=== PATIENT | female | born 1945 | race Caucasian/White ===

== ENCOUNTER 2017-08-11 18:20 | Emergency (ER) | payer OTHER, MEDICARE ==
[2017-08-11] MEDS ORDERED: Sodium Chloride 0.9% 10 ML Syringe FLUSH PRN (18:31)
[2017-08-11] MEDS ORDERED: HYDROmorphone 0.5 MG/0.5 ML Syringe IVPUSH ONE (18:32)
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
--- NOTE | 2017-08-11 19:14 | CT ---
CT chest Technique: Multiple axial sections through the chest were obtained. Intravenous contrast not utilized. Comparison: No previous chest imaging. Findings: Calcified right sided breast prosthesis is noted. AICD is noted causing some artifact. Mediastinum and hilar regions show no adenopathy. Coronary artery calcification is noted. No pericardial thickening is seen. Small portion of the visualized upper abdominal structures have an unremarkable noncontrast CT appearance. Emphysematous changes are seen within the lung with several scattered lungs cysts or bulla. There are no acute parenchymal densities seen within the chest. No pleural effusions or pneumothorax is seen. Bone window settings were reviewed which shows endplate concavities within several upper thoracic vertebral bodies. Age of these are indeterminate and MRI would be needed to further age these findings. Minimal deformity seen within the mid to upper sternum suspicious for nondisplaced fracture. Fracture also identified within the right fourth anterolateral rib. No additional rib fracture is seen. Impression: 1. Fracture within the right fourth anterolateral rib. 2. Nondisplaced fracture felt to be present within the mid to upper sternum. 3. Several endplate concavities within the upper thoracic spine, age of these are indeterminate and MRI would be helpful to further age these findings. 4. Emphysematous change and other incidental findings. Diagnostic code #3
[2017-08-11] MEDS ORDERED: HYDROmorphone 1 MG/ML Syringe IVPUSH ONE (20:16)
[2017-08-11] MEDS ORDERED: Diphtheria,Pertussis(Acell),Tetanus Vaccine 0.5 ML SDV IM ONE (20:45)
== END 2017-08-11 21:38 | disposition home or self-care (01) ==
LOC: JD.ED 18:20
DX: S22.31XA Fracture of one rib, right side, initial encounter for closed fracture (principal); S22.20XA Unspecified fracture of sternum, initial encounter for closed fracture; Z88.2 Allergy status to sulfonamides; Z88.8 Allergy status to other drugs, medicaments and biological substances; Z79.899 Other long term (current) drug therapy; V43.92XA Unspecified car occupant injured in collision with other type car in traffic accident, initial encounter
CPT/HCPCS: 36415; 71250; 80053; 81003; 83690; 84484; 85025; 90471; 90715; 93005; 96374; 96376; 99285; J1170; J7050; 93010; 99284

== ENCOUNTER 2017-08-18 19:43 | Emergency (ER) | payer OTHER, MEDICARE ==
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
--- NOTE | 2017-08-23 16:02 | CR ---
Chest: Two views of the chest were obtained. Comparison: No prior study. Bilateral breast prosthesis which appear calcified are incidentally noted. Heart size is normal. Mild tortuosity of the thoracic aorta is seen. AICD is present. Previous sternal fracture not appreciated on plain film exam as was noted on recent chest CT. Impression: 1. Incidental findings. Nothing acute is seen. Diagnostic code #2
--- NOTE | 2017-08-23 16:02 | CR ---
Left knee: Four views of the left knee were obtained. Comparison: No previous study. Medial and lateral joint spaces are well-maintained in height. No joint effusion is seen. No fracture or other bony abnormality is seen. Impression: 1. No abnormality is appreciated on the left knee exam. Diagnostic code #1
== END 2017-08-18 22:50 | disposition home or self-care (01) ==
LOC: JD.ED 19:43
DX: S80.02XA Contusion of left knee, initial encounter (principal); J45.909 Unspecified asthma, uncomplicated; Z88.5 Allergy status to narcotic agent; Z88.2 Allergy status to sulfonamides; Z79.899 Other long term (current) drug therapy; Z88.8 Allergy status to other drugs, medicaments and biological substances; Z91.09 Other allergy status, other than to drugs and biological substances; V89.2XXA Person injured in unspecified motor-vehicle accident, traffic, initial encounter
CPT/HCPCS: 36415; 71020; 71020-26; 73564-26-LT; 73564-LT; 80053; 83880; 85025; 99283; 99284

== ENCOUNTER 2018-12-14 08:01 | Inpatient (IN) | payer MEDICARE, OTHER ==
[2018-12-14] MEDS ORDERED: Sodium Chloride 0.9% 1,000 ML IV STA (08:36)
[2018-12-14] MEDS ORDERED: Ondansetron 4 MG/2 ML SDV IVPUSH ONE (08:36)
[2018-12-14] MEDS ORDERED: Sodium Chloride 0.9% 10 ML Syringe FLUSH PRN ×2 (08:36→09:55)
[2018-12-14] MEDS ORDERED: Iopamidol 755 Mg/ML 200 ML Bottle IV ONE ×2 (09:55→10:06)
[2018-12-14] MEDS ORDERED: Diatrizoate Meglumine/Diatrizoate Sodium 37% 120 ML Bottle PO ONE (09:55)
[2018-12-14] MEDS ORDERED: Sodium Chloride 0.9% 100 ML IV SCH (10:00)
--- NOTE | 2018-12-14 10:38 | CT ---
CT abdomen and pelvis Technique: Multiple axial sections were obtained from above the dome of the diaphragm inferiorly through the pubic symphysis. Oral contrast utilized which remains within the stomach. Intravenous contrast also utilized. Comparison: No prior CT abdomen or pelvis exam. Findings: Calcified right breast prosthesis is incidentally noted. Small emphysematous blebs are seen within the right lung base. Smaller emphysematous blebs are seen within the left lung base. Liver shows no focal abnormality. Gallbladder contains no calcified gallstones. Spleen appears within normal limits. Adrenal glands show no nodule. Kidneys show symmetric contrast enhancement without hydronephrosis or mass. Pancreas shows no discrete abnormality. Aorta shows mild atheromatous change without aneurysm. Dilated small bowel loops are seen. Small bowel contains fluid. Transition point is within the pelvis in the area of surgical clips presumably representing mild small bowel obstruction due to adhesions. There is a small amount of ascites being seen. Delayed images show no contrast excretion into the distal ureters which is suspicious for dehydration. Previous hysterectomy is noted. Bone window settings were reviewed which show fairly severe degenerative change within the lumbar spine. Spondylolisthesis noted at L4-L5 measuring 7.7 mm. Impression: 1. Mid to distal small bowel obstruction with transition point being within the pelvis. This occurs in the area of surgical clips and presumably represents obstruction from adhesion. 2. Small amount of ascites. 3. Emphysematous bullae within both lung bases. Other incidental findings. Diagnostic code #3
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
[2018-12-14] MEDS ORDERED: Ondansetron 4 MG/2 ML SDV IV PRN (14:58)
[2018-12-14] MEDS ORDERED: Sodium Chloride 0.9% 500 ML IV SCH (15:00)
[2018-12-14] MEDS ORDERED: Dextrose 5%-0.9% NaCl 1,000 ML IV SCH (15:00)
[2018-12-14] MEDS ORDERED: Albuterol 6.7 GM Inhaler INH PRN (15:08)
[2018-12-14] MEDS ORDERED: CYCLOSPORINE EYE EYEBOTH PRN (15:08)
[2018-12-14] MEDS ORDERED: Carboxymethylcellulose Sodium 1% Ophth Gel 15 ML Bottle EYEBOTH PRN (15:08)
[2018-12-14] MEDS ORDERED: FLURBIPROFEN SODIUM OP SCH (15:15)
--- NOTE | 2018-12-14 16:12 | PCM.HP ---
H&P History of Present Illness - General Date of Service: 12/14/18 Admit Problem/Dx: Admission Diagnosis/Problem Admission Diagnosis/Problem Small bowel obstruction Source of Information: Patient - History of Present Illness Initial Comments - Free Text/Narative: This 73-year-old female with history of bowel obstruction 2 months ago presents to the ER this morning after developing abdominal pain last night. She states that her stomach hurt last night with cramping and pain. She then had 3 bowel movements which did seem to help her pain. At 3:00 in the morning she started vomiting green bile and the pain worsened again. At 6:30 she did have another bowel movement and urinated. Pain did not improve and she continued to vomit and by 8:00 she came to the hospital. She states that her stomach now feels full. She denies any hematemesis, coffee-ground emesis, melena, or blood in her stool. Patient had a similar episode 2 months ago and she was diagnosed with bowel obstruction and hospitalized for 3 or 4 days. She does state that she likely had a similar, smaller episode 2 weeks earlier. Patient states that in 1998 she had a hysterectomy with oophorectomy and appendectomy. At that time presumed diagnosis was possible ovarian cancer and she underwent 3 months of chemotherapy. 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 Patient underwent diagnostic surgery, chemotherapy, and radiation. In 2014 she underwent surgery again for complications to her pseudomyxoma peritonei. She has not had any bowel resection other than the appendectomy. In the emergency room patient had an NG tube placed. She states she did vomit and they did get some residual. She was given 1 L normal saline and admitted. CT of the abdomen was done in the emergency room. Impression: 1. Mid to distal small bowel obstruction with transition point being within the pelvis. This occurs in the area of surgical clips and presumably represents obstruction from adhesion. 2. Small amount of ascites. 3. Emphysematous bullae within both lung bases. Other incidental findings. Abdomen Pain Score (Numeric/FACES): 6 - Related Data Allergies/Adverse Reactions: Allergies Allergy/AdvReac Type Severity Reaction Status Date / Time cobalt Allergy Hives Verified 12/14/18 08:27 homatropine Allergy Hives Verified 12/14/18 08:27 [From Hycodan (with homatropin)] hydrocodone Allergy Hives Verified 12/14/18 08:27 [From Hycodan (with homatropin)] nickel Allergy Hives Verified 12/14/18 08:27 perfume Allergy Hives Verified 12/14/18 08:27 Sulfa (Sulfonamide Allergy Hives Verified 12/14/18 08:27 Antibiotics) Home Medications: Home Meds Acetaminophen [Tylenol Extra Strength] 1,000 mg PO QID 08/11/17 [History] Albuterol Sulfate [Proair Respiclick] 2 puff INH Q4H PRN 08/11/17 [History] Ascorbate Calcium [Vitamin C] 500 mg PO DAILY 08/11/17 [History] Budesonide/Formoterol Fumarate [Symbicort 160-4.5 Mcg Inhaler] 2 puff INH BID [History] Ca/D3/Mag Ox/Zinc/Informatics Analyst/Uri/Bor [Calcium 600-D3 Plus Caplet] 600 - 1,500 mg PO DAILY 08/11/17 [History] Carboxymethylcellulose Sodium [Refresh Tears 0.5%] 1 drop EYEBOTH ASDIRECTED PRN 08/11/17 [History] Carvedilol [Coreg] 12.5 mg PO BID 08/11/17 [History] Cephalexin [Keflex] 500 mg PO BID 08/11/17 [History] Cholecalciferol (Vitamin D3) [Vitamin D3] 2,000 unit PO ASDIRECTED 08/11/17 [ History] Docusate Sodium [Colace] 300 mg PO BEDTIME PRN 08/11/17 [History] Hydroxychloroquine [Plaquenil] 200 mg PO BID 08/11/17 [History] Ibuprofen [Advil] 200 mg PO BID 08/11/17 [History] Ipratropium/Albuterol Sulfate [Iprat-Albut 0.5-3(2.5) mg/3 ml] 3 ml IH BID 08/11 [History] Lisinopril 20 mg PO DAILY 08/11/17 [History] Multivitamin [Multivitamins] 1 each PO DAILY 08/11/17 [History] Nystatin [IJD: Nystatin Cream] 1 applic TOP BID 08/11/17 [History] OLANZapine [ZyPREXA] 2.5 mg PO DAILY 08/11/17 [History] Ofloxacin [Floxin 0.3% Otic Soln] 1 drop EYEBOTH ASDIRECTED PRN 08/11/17 [ History] Omeprazole 40 mg PO DAILY 08/11/17 [History] traMADol [Ultram] 50 mg PO Q6H PRN 08/11/17 [History] Flurbiprofen Sodium 2.5 ml OP ASDIRECTED 12/14/18 [History] Furosemide [Lasix] 20 mg PO DAILY PRN 12/14/18 [History] cycloSPORINE [Restasis] 1 each OP ASDIRECTED PRN 12/14/18 [History] prednisoLONE acetate [Pred Forte 1% Ophth Susp] 0 drop EYEBOTH ASDIRECTED [History] Past Medical History HEENT History: Reports: Allergic Rhinitis, Cataract, Impaired Vision, Sinusitis Other HEENT History: utilizes reading eyeglasses. Cardiovascular History: Reports: Heart Failure, Hypertension, Pacemaker, Other ( See Below) Other Cardiovascular History: L) bundle branch block Respiratory History: Reports: Asthma, Bronchitis, Recurrent, Pneumonia, Recurrent, Sleep Apnea Gastrointestinal History: Reports: Bowel Obstruction, Other (See Below) Other Gastrointestinal History: cancer in stomach. Pseudomyxoma. 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 Hematologic History: Reports: Anemia, Blood Transfusion(s) Oncologic (Cancer) History: Reports: Breast, Ovarian, Other (See Below) Other Oncologic History: pseudomyxoma peritonei Dermatologic History: Reports: Other (See Below) Other Dermatologic History: allergies to fragrances/perfumes. Dry skin. - Infectious Disease History Infectious Disease History: Reports: Chicken Pox, Measles, Mumps, Shingles - Past Surgical History Head Surgeries/Procedures: Reports: None GI Surgical History: Reports: Appendectomy, Colonoscopy Female Surgical History: Reports: Breast Reconstruction, Hysterectomy, Mastectomy Social & Family History - Family History Cardiac: Reports: [place], Pacemaker Musculoskeletal: Reports: Arthritis, RA Oncologic: Reports: Breast - Tobacco Use Smoking Status *Q: Former Smoker Used Tobacco, but Quit: Yes Month/Year Tobacco Last Used: 1979 Second Hand Smoke Exposure: Yes - Caffeine Use Caffeine Use: Reports: Soda, Tea - Recreational Drug Use Recreational Drug Use: No H&P Review of Systems - Review of Systems: Review Of Systems: See Below General: Reports: Fatigue, Weight Loss (25 pounds in last year) Pulmonary: Reports: No Symptoms. Denies: Shortness of Breath, Wheezing Cardiovascular: Reports: No Symptoms. Denies: Chest Pain, Palpitations Gastrointestinal: Reports: Decreased Appetite, Vomiting. Denies: Black Stool, Bloody Stool, Diarrhea Genitourinary: Reports: No Symptoms. Denies: Dysuria, Frequency Musculoskeletal: Reports: No Symptoms Skin: Reports: No Symptoms Psychiatric: Reports: No Symptoms Neurological: Reports: No Symptoms Hematologic/Lymphatic: Reports: No Symptoms Immunologic: Reports: No Symptoms Exam - Exam Exam: See Below - Vital Signs Vital Signs: Last Vital Signs Temp 98.2 F 12/14/18 13:06 Pulse 122 H 12/14/18 13:06 Resp 16 12/14/18 13:06 BP 136/63 12/14/18 13:06 Pulse Ox 92 L 12/14/18 13:06 Weight: 118 lb 8 oz - Exam Quality Assessment: Other (NG tube to wall suction) General: Alert, Oriented HEENT: Conjunctiva Clear, Other. No: Mucosa Moist & [place] (Mildly dehydrated mucosa) Neck: Supple, Trachea Midline Lungs: Clear to Auscultation, Normal Respiratory Effort Cardiovascular: Regular Rhythm, Tachycardia GI/Abdominal Exam: Soft, No Organomegaly, No Distention, Tender (Minimal epigastric and left upper quadrant tenderness). No: Distended, Guarding, Rigid , Rebound Peripheral Pulses: 1+: Dorsalis Pedis (L), Dorsalis Pedis (R) Skin: Warm, Dry, Intact Neuro Extensive - Mental Status: Alert, Oriented x3, Normal Mood/Affect, Normal Cognition, Memory Intact Psychiatric: Alert, Normal Affect, Normal Mood - Patient Data Lab Results Last 24 hrs: Laboratory Results - last 24 hr 12/14/18 12/14/18 Range/Units 08:45 08:45 WBC 12.09 H (3.98-10.04) K/mm3 RBC 4.22 (3.98-5.22) M/mm3 Hgb 12.0 (11.2-15.7) gm/L Hct 39.3 (34.1-44.9) % MCV 93.1 (79.4-94.8) fl MCH 28.4 (25.6-32.2) pg MCHC 30.5 L (32.2-35.5) g/dl RDW Std Deviation 46.7 H (36.4-46.3) fL Plt Count 225 (182-369) K/mm3 MPV 9.8 (9.4-12.3) fl Neut % (Auto) 87.5 H (34.0-71.1) % Lymph % (Auto) 7.3 L (19.3-51.7) % [place] % (Auto) 4.9 (4.7-12.5) % Eos % (Auto) 0 L (0.7-5.8) Baso % (Auto) 0.1 (0.1-1.2) % Neut # (Auto) 10.58 H (1.56-6.13) K/mm3 Lymph # (Auto) 0.88 L (1.18-3.74) K/mm3 [place] # (Auto) 0.59 H (0.24-0.36) K/mm3 Eos # (Auto) 0.00 L (0.04-0.36) K/mm3 Baso # (Auto) 0.01 (0.01-0.08) K/mm3 Manual Slide Review Abnormal smear Sodium 133 L (136-145) mEq/L Potassium 5.4 H (3.5-5.1) mEq/L Chloride 98 (98-107) mEq/L Carbon Dioxide 23 (21-32) mEq/L Anion Gap 17.4 H (5-15) BUN 28 H (7-18) mg/dL Creatinine 1.3 H (0.55-1.02) mg/dL Est Cr Clr Drug Dosing 34.27 mL/min Estimated GFR (MDRD) 40 (>60) mL/min BUN/Creatinine Ratio 21.5 H (14-18) Glucose 117 H (83-115) mg/dL Calcium 10.3 H (8.5-10.1) mg/dL Total Bilirubin 0.3 (0.2-1.0) mg/dL AST 36 (15-37) U/L ALT 19 (14-59) U/L Alkaline Phosphatase 100 (46-116) U/L Total Protein 9.8 H (6.4-8.2) g/dl Albumin 3.7 (3.4-5.0) g/dl Globulin 6.1 gm/dL Albumin/Globulin Ratio 0.6 L (1-2) Lipase 379 (73-393) U/L Result Diagrams: 12/14/18 08:45 12/14/18 08:45 - Problem List (1) Pseudomyxoma peritonei SNOMED Code(s): 902085848 ICD Code: C78.6 - SECONDARY MALIGNANT NEOPLASM OF RETROPERITON AND PERITONEUM Status: Acute Current Visit: Yes (2) CHF (congestive heart failure) SNOMED Code(s): 71279710 ICD Code: I50.9 - HEART FAILURE, UNSPECIFIED Status: Acute Current Visit : Yes (3) HTN (hypertension) SNOMED Code(s): 93155030 ICD Code: I10 - ESSENTIAL (PRIMARY) HYPERTENSION Status: Acute Current Visit: Yes (4) Asthma SNOMED Code(s): 112868647 ICD Code: J45.909 - UNSPECIFIED ASTHMA, UNCOMPLICATED Status: Acute Current Visit: Yes (5) Sjogrens syndrome SNOMED Code(s): 98531145 ICD Code: M35.00 - SICCA SYNDROME, UNSPECIFIED Status: Acute Current Visit: Yes (6) Rheumatoid arthritis SNOMED Code(s): 00898351 ICD Code: M06.9 - RHEUMATOID ARTHRITIS, UNSPECIFIED Status: Acute Current Visit: Yes (7) Small bowel obstruction SNOMED Code(s): 506051688 ICD Code: K56.609 - UNSP INTESTNL OBST, UNSP TO PARTIAL VERSUS COMPLETE OBST Status: Acute Current Visit: Yes Problem List Initiated/Reviewed/Updated: Yes Orders Last 24hrs: Active Orders 24 hr Category Date Time Status Patient Status [ADT] Routine ADT 12/14/18 12:14 Active Bedrest Bedside Commode [RC] ASDIRECTED Care 12/14/18 14:58 Active Cardiac Monitoring [RC] CONTINUOUS Care 12/14/18 14:59 Active Height and Weight [RC] DAILY Care 12/14/18 14:58 Active Intake and Output [RC] QSHIFT Care 12/14/18 14:59 Active NG [Gastrointestinal Tube Mgmt] [RC] ASDIRECTED Care 12/14/18 15:16 Active Oxygen Therapy [RC] PRN Care 12/14/18 14:58 Active Peripheral IV Care [RC] . DIRECTED Care 12/14/18 08:36 Active Urinary Catheter Assessment [RC] ASDIRECTED Care 12/14/18 14:58 Active Urinary Catheter Assessment [RC] ASDIRECTED Care 12/14/18 15:19 Active Urinary Catheter Insertion [Insert Urinary Catheter] [ Care 12/14/18 15:30 Ordered OM.PC] Q24H VTE/DVT Education [RC] PER UNIT ROUTINE Care 12/14/18 14:58 Active Vital Signs [RC] Q4H Care 12/14/18 14:58 Active Nothing per Oral Now Diet [DIET] Diet 12/14/18 Dinner Active Abdomen 1V Flat [CR] AM Exams 12/15/18 05:11 Ordered CBC WITH AUTO DIFF [HEME] AM Lab 12/15/18 05:11 Ordered COMPREHENSIVE METABOLIC PN,CMP [CHEM] AM Lab 12/15/18 05:11 Ordered LACTIC ACID [CHEM] AM Lab 12/15/18 05:11 Ordered MAGNESIUM [CHEM] AM Lab 12/15/18 05:11 Ordered PHOSPHORUS [CHEM] AM Lab 12/15/18 05:11 Ordered UA W/MICROSCOPIC [URIN] Stat Lab 12/14/18 08:36 Ordered Albuterol [Proventil HFA] Med 12/14/18 15:08 Active 0 gm INH Q4H PRN Budesonide/Formoterol Fumarate Med 12/14/18 21:00 Pending 2 puff INH BID Carboxymethylcellulose Sodium [Refresh Liquigel 1%] Med 12/14/18 15:08 Active 0 ml EYEBOTH ASDIRECTED PRN Dextrose 5%-0.9% NaCl [Dextrose 5%-Normal Saline] 1,000 Med 12/14/18 15:00 Active ml IV ASDIRECTED Enoxaparin [Lovenox] Med 12/14/18 15:00 Active 40 mg SUBCUT DAILY Flurbiprofen Sodium [Flurbiprofen Sodium] Med 12/14/18 15:15 Pending 2.5 ml OP ASDIRECTED Metoprolol Tartrate [Lopressor] Med 12/14/18 15:15 Active 2.5 mg IVPUSH Q6H Nystatin Med 12/14/18 21:00 Pending 1 applic TOP BID Ondansetron [Zofran] Med 12/14/18 14:58 Active 4 mg IV Q4H PRN Pantoprazole [ProTONIX IV] Med 12/15/18 09:00 Active 40 mg IVPUSH DAILY Patient's Own Medication [Ptom] Med 12/14/18 15:08 Active 1 each EYEBOTH ASDIRECTED PRN Sodium Chloride 0.9% @ 150 MLS/HR (1000ml Bag) Med 12/14/18 16:15 Ordered Sodium Chloride 0.9% [Normal Saline] 1,000 ml IV ASDIRECTED Sodium Chloride 0.9% [Normal Saline] 100 ml Med 12/14/18 10:00 Active IV ASDIRECTED Sodium Chloride 0.9% [Normal Saline] 500 ml Med 12/14/18 15:00 Active IV .BOLUS Sodium Chloride 0.9% [Saline Flush] Med 12/14/18 08:36 Active 10 ml FLUSH ASDIRECTED PRN Sodium Chloride 0.9% [Saline Flush] Med 12/14/18 09:55 Active 10 ml FLUSH ONETIME PRN ED Antiemetic Medication Reflex [OM.PC] Stat Ot 12/14/18 08:37 Ordered NG [Nasogastric Orogastric Tube Insertion] [OM.PC] Oth 12/14/18 11:18 Ordered Routine Peripheral IV Insertion Adult [OM.PC] Stat Ot 12/14/18 08:36 Ordered Resuscitation Status Routine Resus Stat 12/14/18 14:58 Ordered Medication Orders Albuterol (Proventil Hfa) 0 gm INH Q4H PRN PRN Reason: Wheezing Artificial Tears (Refresh Liquigel 1%) 0 ml EYEBOTH ASDIRECTED PRN PRN Reason: Dry Eyes Enoxaparin Sodium (Lovenox) 40 mg SUBCUT DAILY [facility] Sodium Chloride (Normal Saline) 100 mls @ 75 mls/hr IV ASDIRECTED [facility] Last Admin: 12/14/18 10:07 Dose: 75 mls/hr Dextrose/Sodium Chloride (Dextrose 5%-Normal Saline) 1,000 mls @ 150 mls/hr IV ASDIRECTED [facility] Sodium Chloride (Normal Saline) 500 mls @ 999 mls/hr IV .BOLUS [facility] Last Admin: 12/14/18 15:32 Dose: 999 mls/hr Metoprolol Tartrate (Lopressor) 2.5 mg IVPUSH Q6H [facility] Non-Formulary Medication (Budesonide/Formoterol Fumarate) 2 puff INH BID [facility] Flurbiprofen Sodium [Flurbiprofen Sodium ] 2.5 Ml) 2.5 ml OP ASDIRECTED [facility] Non-Formulary Medication (Nystatin) 1 applic TOP BID [facility] Ondansetron HCl (Zofran) 4 mg IV Q4H PRN PRN Reason: Nausea/Vomiting Pantoprazole Sodium (Protonix Iv) 40 mg IVPUSH DAILY [facility] Cyclosporine Eye (Drops Ptom) 1 each EYEBOTH ASDIRECTED PRN PRN Reason: Dry Eyes Sodium Chloride (Saline Flush) 10 ml FLUSH ASDIRECTED PRN PRN Reason: Keep Vein Open Last Admin: 12/14/18 08:45 Dose: 10 ml Sodium Chloride (Saline Flush) 10 ml FLUSH ONETIME PRN PRN Reason: IV FLUSH Last Admin: 12/14/18 10:07 Dose: 10 ml Assessment/Plan Comment:: Small bowel obstruction * Small 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 This is her second episode in 2 months and we discussed with the patient the treatment plan. * Nothing by mouth except ice chips * NG tube with continuous suction * Normal saline 500 mL bolus then followed with D5 normal saline 150 mL an hour. * Consider consultation with surgery tomorrow if patient does not improve. * Abdominal x-ray in the morning Hypovolemia/dehydration * Patient tachycardic and has some decreased kidney function likely due to poor perfusion. Patient will be rehydrated. Her tachycardia could also be worsened by her missing her beta casandra this morning. * Patient has a slightly elevated potassium and creatinine. This is likely due to her hypovolemia. * Repeat labs in the morning Congestive heart failure * Follow strict ins and outs and daily weights. * Place urinary catheter * Monitor patient on telemetry * Patient is unable to take her beta casandra by mouth so we will switch to metoprolol 2.5 mg every 6 hours. Pseudomyxoma peritonei * Treat patient's small bowel obstruction and rehydrate. Slowly increase diet as tolerated. * Patient may need to follow-up with surgery as an outpatient. Hypertension * Monitor blood pressure closely and start IV metoprolol Chronic medical conditions: Asthma, which arthritis, Sjogren's syndrome, arthritis, pacemaker VTE prophylaxis with Lovenox
[2018-12-14] MEDS ORDERED: Sodium Chloride 0.9% 1,000 ML IV SCH (16:15)
[2018-12-14] MEDS: Enoxaparin 40 MG/0.4 ML Syringe SUBCUT SCH (16:24)
[2018-12-14] MEDS: Metoprolol Tartrate 5 MG/5 ML SDV IVPUSH SCH ×2 (16:24→20:54)
--- NOTE | 2018-12-14 18:56 | CR ---
Chest: Portable view of the chest was obtained. Comparison: Prior chest x-ray of 09/24/17. Unilateral calcified breast prosthesis is seen. AICD is present. Heart size is normal. Slight tortuosity of the thoracic aorta is seen. Lungs are clear. Bony structures are grossly intact. Surgical clips noted within the right axillary region. Nasogastric tube is seen. Tip lies within stomach. Impression: 1. Multiple findings as described above. 2. Nasogastric tube lies within the stomach. 3. No acute intrathoracic process is seen. Diagnostic code #2
[2018-12-14] MEDS ORDERED: FORMOTEROL FUMARATE INH SCH (21:00)
[2018-12-14] MEDS ORDERED: BUDESONIDE INH SCH (21:00)
[2018-12-14] MEDS: Dextrose 5%-0.9% NaCl 1,000 ML IV SCH (23:23)
[2018-12-15] MEDS: Metoprolol Tartrate 5 MG/5 ML SDV IVPUSH SCH ×3 (03:43→20:37)
[2018-12-15] MEDS: Dextrose 5%-0.9% NaCl 1,000 ML IV SCH ×2 (06:01→13:46)
[2018-12-15] MEDS ORDERED: Magnesium Sulfate/Water 4 GM in Premix Bag 1 BAG IV ONE (07:55)
[2018-12-15] MEDS ORDERED: Dextrose 5%-0.9% NaCl 1,000 ML IV SCH ×2 (08:30→10:45)
--- NOTE | 2018-12-15 09:07 | CR ---
Abdomen: Supine and upright views of the abdomen were obtained. Comparison: Prior abdominal and pelvic CT study of 12/14/18. Several loops of slightly prominent small bowel are noted. Findings are improved from previous CT exam. Contrast is noted within the colon which appears nondilated. No free air is seen. Nasogastric tube is seen with tip lying within the stomach. Vascular calcification is noted. Scoliosis and degenerative change are noted within the spine. Impression: 1. Several loops of mildly prominent small bowel with findings appearing improved from previous CT abdomen and pelvis study. 2. Other incidental findings as noted above. Diagnostic code #3
[2018-12-15] MEDS: Formoterol/Mometasone 200-5 MCG 8.8 GM Inhaler IH SCH ×2 (09:14→20:54)
[2018-12-15] MEDS: Albuterol/Ipratropium 3.0-0.5 MG/3 ML Neb Soln NEB PRN ×3 (09:14→20:55)
[2018-12-15] MEDS: Pantoprazole 40 MG Vial IVPUSH SCH (09:37)
[2018-12-15] MEDS: Enoxaparin 40 MG/0.4 ML Syringe SUBCUT SCH (09:40)
[2018-12-15] MEDS ORDERED: Metoprolol Tartrate 5 MG/5 ML SDV IVPUSH STA (13:13)
--- NOTE | 2018-12-15 13:21 | PCM.PN ---
- General Info Date of Service: 12/15/18 Admission Dx/Problem (Free Text): Admission Diagnosis/Problem Admission Diagnosis/Problem Small bowel obstruction Subjective Update: Patient did well overnight. She denies any abdominal pain, nausea, vomiting, shortness of breath, or chest pain. She had nothing out of her NG tube. - Review of Systems General: Reports: No Symptoms HEENT: Reports: No Symptoms Pulmonary: Reports: No Symptoms Cardiovascular: Reports: No Symptoms Gastrointestinal: Reports: No Symptoms. Denies: Abdominal Pain, Nausea, Vomiting - Patient Data Vitals - Most Recent: Last Vital Signs Temp 98.5 F 12/15/18 12:00 Pulse 101 H 12/15/18 12:00 Resp 18 12/15/18 12:00 BP 142/58 H 12/15/18 12:00 Pulse Ox 91 L 12/15/18 12:00 Weight - Most Recent: 118 lb 8 oz I&O - Last 24 Hours: Intake & Output 12/14/18 12/15/18 12/15/18 22:59 06:59 14:59 Intake Total 595 1605 Output Total 400 300 270 Balance 195 1305 -270 Lab Results Last 24 Hours: Laboratory Results - last 24 hr 12/14/18 12/15/18 12/15/18 Range/Units 17:00 05:45 05:45 WBC 6.68 (3.98-10.04) K/mm3 RBC 2.98 L (3.98-5.22) M/mm3 Hgb 8.5 L (11.2-15.7) gm/L Hct 28.2 L (34.1-44.9) % MCV 94.6 (79.4-94.8) fl MCH 28.5 (25.6-32.2) pg MCHC 30.1 L (32.2-35.5) g/dl RDW Std Deviation 46.4 H (36.4-46.3) fL Plt Count 169 L (182-369) K/mm3 MPV 9.1 L (9.4-12.3) fl Neut % (Auto) 68.4 (34.0-71.1) % Lymph % (Auto) 21.9 (19.3-51.7) % [place] % (Auto) 9.6 (4.7-12.5) % Eos % (Auto) 0 L (0.7-5.8) Baso % (Auto) 0.0 L (0.1-1.2) % Neut # (Auto) 4.57 (1.56-6.13) K/mm3 Lymph # (Auto) 1.46 (1.18-3.74) K/mm3 [place] # (Auto) 0.64 H (0.24-0.36) K/mm3 Eos # (Auto) 0.00 L (0.04-0.36) K/mm3 Baso # (Auto) 0.00 L (0.01-0.08) K/mm3 Sodium 137 (136-145) mEq/L Potassium 3.9 (3.5-5.1) mEq/L Chloride 107 (98-107) mEq/L Carbon Dioxide 21 (21-32) mEq/L Anion Gap 12.9 (5-15) BUN 17 (7-18) mg/dL Creatinine 0.8 (0.55-1.02) mg/dL Est Cr Clr Drug Dosing 54.73 mL/min Estimated GFR (MDRD) > 60 (>60) mL/min BUN/Creatinine Ratio 21.3 H (14-18) Glucose 108 (83-115) mg/dL Lactic Acid (0.4-2.0) mmol/L Calcium 8.0 L (8.5-10.1) mg/dL Phosphorus 2.5 L (2.6-4.7) mg/dL Magnesium 1.5 L (1.8-2.4) mg/dl Total Bilirubin 0.2 (0.2-1.0) mg/dL AST 32 (15-37) U/L ALT 14 (14-59) U/L Alkaline Phosphatase 68 (46-116) U/L Total Protein 6.8 (6.4-8.2) g/dl Albumin 2.5 L (3.4-5.0) g/dl Globulin 4.3 gm/dL Albumin/Globulin Ratio 0.6 L (1-2) Urine Color Yellow (Yellow) Urine Appearance Clear (Clear) Urine pH 6.0 (5.0-8.0) Ur Specific [place] 1.025 (1.005-1.030) Urine Protein 1+ H (Negative) Urine Glucose (UA) Negative (Negative) Urine Ketones Negative (Negative) Urine Occult Blood Negative (Negative) Urine Nitrite Negative (Negative) Urine Bilirubin Negative (Negative) Urine Urobilinogen 0.2 (0.2-1.0) Ur Leukocyte Esterase Negative (Negative) Urine RBC Not seen (0-5) /hpf Urine WBC 0-5 (0-5) /hpf Ur Epithelial Cells 0-5 (0-5) /hpf Urine Bacteria Rare (FEW) /hpf Fine Granular Casts 0-5 (0-5) /lpf Urine Mucus Rare H (FEW) /hpf 12/15/18 Range/Units 05:45 WBC (3.98-10.04) K/mm3 RBC (3.98-5.22) M/mm3 Hgb (11.2-15.7) gm/L Hct (34.1-44.9) % MCV (79.4-94.8) fl MCH (25.6-32.2) pg MCHC (32.2-35.5) g/dl RDW Std Deviation (36.4-46.3) fL Plt Count (182-369) K/mm3 MPV (9.4-12.3) fl Neut % (Auto) (34.0-71.1) % Lymph % (Auto) (19.3-51.7) % [place] % (Auto) (4.7-12.5) % Eos % (Auto) (0.7-5.8) Baso % (Auto) (0.1-1.2) % Neut # (Auto) (1.56-6.13) K/mm3 Lymph # (Auto) (1.18-3.74) K/mm3 [place] # (Auto) (0.24-0.36) K/mm3 Eos # (Auto) (0.04-0.36) K/mm3 Baso # (Auto) (0.01-0.08) K/mm3 Sodium (136-145) mEq/L Potassium (3.5-5.1) mEq/L Chloride (98-107) mEq/L Carbon Dioxide (21-32) mEq/L Anion Gap (5-15) BUN (7-18) mg/dL Creatinine (0.55-1.02) mg/dL Est Cr Clr Drug Dosing mL/min Estimated GFR (MDRD) (>60) mL/min BUN/Creatinine Ratio (14-18) Glucose (83-115) mg/dL Lactic Acid 0.6 (0.4-2.0) mmol/L Calcium (8.5-10.1) mg/dL Phosphorus (2.6-4.7) mg/dL Magnesium (1.8-2.4) mg/dl Total Bilirubin (0.2-1.0) mg/dL AST (15-37) U/L ALT (14-59) U/L Alkaline Phosphatase (46-116) U/L Total Protein (6.4-8.2) g/dl Albumin (3.4-5.0) g/dl Globulin gm/dL Albumin/Globulin Ratio (1-2) Urine Color (Yellow) Urine Appearance (Clear) Urine pH (5.0-8.0) Ur Specific [place] (1.005-1.030) Urine Protein (Negative) Urine Glucose (UA) (Negative) Urine Ketones (Negative) Urine Occult Blood (Negative) Urine Nitrite (Negative) Urine Bilirubin (Negative) Urine Urobilinogen (0.2-1.0) Ur Leukocyte Esterase (Negative) Urine RBC (0-5) /hpf Urine WBC (0-5) /hpf Ur Epithelial Cells (0-5) /hpf Urine Bacteria (FEW) /hpf Fine Granular Casts (0-5) /lpf Urine Mucus (FEW) /hpf Med Orders - Current: Current Medications Albuterol (Proventil Hfa) 0 gm INH Q4H PRN PRN Reason: Wheezing Albuterol/Ipratropium (Duoneb 3.0-0.5 Mg/3 Ml) 3 ml NEB Q6HRRT PRN PRN Reason: Dyspnea Last Admin: 12/15/18 09:14 Dose: 3 ml Artificial Tears (Refresh Liquigel 1%) 0 ml EYEBOTH ASDIRECTED PRN PRN Reason: Dry Eyes Enoxaparin Sodium (Lovenox) 40 mg SUBCUT DAILY [facility] Last Admin: 12/15/18 09:40 Dose: 40 mg Dextrose/Sodium Chloride (Dextrose 5%-Normal Saline) 1,000 mls @ 75 mls/hr IV ASDIRECTED [facility] Metoprolol Tartrate (Lopressor) 2.5 mg IVPUSH Q6H [facility] Last Admin: 12/15/18 09:38 Dose: 2.5 mg Mometasone Furoate/Formoterol Fumar (Dulera 200-5 Mcg) 0 puff IH BID [facility] Last Admin: 12/15/18 09:14 Dose: 2 puff Ondansetron HCl (Zofran) 4 mg IV Q4H PRN PRN Reason: Nausea/Vomiting Pantoprazole Sodium (Protonix Iv) 40 mg IVPUSH DAILY [facility] Last Admin: 12/15/18 09:37 Dose: 40 mg Sodium Chloride (Saline Flush) 10 ml FLUSH ASDIRECTED PRN PRN Reason: Keep Vein Open Last Admin: 12/14/18 08:45 Dose: 10 ml Discontinued Medications Diatrizoate Meglum/Diatrizoate Sod (Gastrografin 37%) 120 ml PO ONETIME ONE Stop: 12/14/18 09:56 Last Admin: 12/14/18 10:07 Dose: 45 ml Sodium Chloride (Normal Saline) 1,000 mls @ 1,000 mls/hr IV .BOLUS STA Stop: 12/14/18 09:35 Last Admin: 12/14/18 08:53 Dose: 1,000 mls/hr Sodium Chloride (Normal Saline) 100 mls @ 75 mls/hr IV ASDIRECTED [facility] Last Admin: 12/14/18 10:07 Dose: 75 mls/hr Dextrose/Sodium Chloride (Dextrose 5%-Normal Saline) 1,000 mls @ 150 mls/hr IV ASDIRECTED [facility] Sodium Chloride (Normal Saline) 500 mls @ 999 mls/hr IV .BOLUS [facility] Last Admin: 12/14/18 15:32 Dose: 999 mls/hr Sodium Chloride (Normal Saline) 1,000 mls @ 150 mls/hr IV ASDIRECTED [facility] Last Admin: 12/14/18 16:28 Dose: 150 mls/hr Dextrose/Sodium Chloride (Dextrose 5%-Normal Saline) 1,000 mls @ 150 mls/hr IV ASDIRECTED [facility] Last Admin: 12/15/18 06:01 Dose: 150 mls/hr Magnesium Sulfate 4 gm/ Premix 100 mls @ 25 mls/hr IV ONETIME ONE Stop: 12/15/18 07:56 Last Admin: 12/15/18 09:37 Dose: 25 mls/hr Dextrose/Sodium Chloride (Dextrose 5%-Normal Saline) 1,000 mls @ 100 mls/hr IV ASDIRECTED [facility] Dextrose/Sodium Chloride (Dextrose 5%-Normal Saline) 1,000 mls @ 100 mls/hr IV ASDIRECTED [facility] Iopamidol (Isovue-370 (76%)) 100 ml IV ONETIME ONE Stop: 12/14/18 09:56 Last Admin: 12/14/18 10:06 Dose: 70 ml Flurbiprofen Sodium [Flurbiprofen Sodium ] 2.5 Ml) 2.5 ml OP ASDIRECTED [facility] Non-Formulary Medication (Nystatin) 1 applic TOP BID [facility] Ondansetron HCl (Zofran) 4 mg IVPUSH ONETIME ONE Stop: 12/14/18 08:37 Last Admin: 12/14/18 08:51 Dose: 4 mg Budesonide/Formoterol Fumarate (Symbicort) 0 each INH BID [facility] Last Admin: 12/15/18 09:17 Dose: Not Given Cyclosporine Eye (Drops Ptom) 1 each EYEBOTH ASDIRECTED PRN PRN Reason: Dry Eyes Sodium Chloride (Saline Flush) 10 ml FLUSH ONETIME PRN PRN Reason: IV FLUSH Last Admin: 12/14/18 10:07 Dose: 10 ml - Exam General: Alert, Oriented HEENT: Pupils Equal Neck: Supple Lungs: Normal Respiratory Effort, Wheezing Cardiovascular: Regular Rhythm, Tachycardia GI/Abdominal Exam: Soft, Non-Tender, No Distention Extremities: Normal Inspection, No Pedal Edema Skin: Warm, Dry - Problem List & Annotations (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 Code(s): C78.6 - SECONDARY MALIGNANT NEOPLASM OF RETROPERITON AND PERITONEUM Status: Acute Current Visit: Yes (2) CHF (congestive heart failure) SNOMED Code(s): 15690707 Code(s): I50.9 - HEART FAILURE, UNSPECIFIED Status: Acute Current Visit: Yes (3) HTN (hypertension) SNOMED Code(s): 20690126 Code(s): I10 - ESSENTIAL (PRIMARY) HYPERTENSION Status: Acute Current Visit: Yes (4) Asthma SNOMED Code(s): 378862004 Code(s): J45.909 - UNSPECIFIED ASTHMA, UNCOMPLICATED Status: Acute Current Visit: Yes (5) Sjogrens syndrome SNOMED Code(s): 28466902 Code(s): M35.00 - SICCA SYNDROME, UNSPECIFIED Status: Acute Current Visit : Yes (6) Rheumatoid arthritis SNOMED Code(s): 98073861 Code(s): M06.9 - RHEUMATOID ARTHRITIS, UNSPECIFIED Status: Acute Current Visit: Yes (7) Small bowel obstruction SNOMED Code(s): 124270698 Code(s): K56.609 - UNSP INTESTNL OBST, UNSP TO PARTIAL VERSUS COMPLETE OBST Status: Acute Current Visit: Yes - Problem List Review Problem List Initiated/Reviewed/Updated: Yes - My Orders Last 24 Hours: My Active Orders 12/14/18 14:58 Bedrest Bedside Commode [RC] ASDIRECTED Height and Weight [RC] 04 Oxygen Therapy [RC] PRN VTE/DVT Education [RC] PER UNIT ROUTINE Vital Signs [RC] Q4HR Ondansetron [Zofran] 4 mg IV Q4H PRN Resuscitation Status Routine 12/14/18 14:59 Intake and Output [RC] Q4HR 12/14/18 15:00 Enoxaparin [Lovenox] 40 mg SUBCUT DAILY 12/14/18 15:08 Albuterol [Proventil HFA] 0 gm INH Q4H PRN Carboxymethylcellulose Sodium [Refresh Liquigel 1%] 0 ml EYEBOTH ASDIRECTED PRN 12/14/18 15:15 Metoprolol Tartrate [Lopressor] 2.5 mg IVPUSH Q6H 12/14/18 15:16 NG [Gastrointestinal Tube Mgmt] [RC] QSHIFT 12/14/18 15:19 Urinary Catheter Assessment [RC] 10,16,22,04 12/14/18 15:30 Urinary Catheter Insertion [Insert Urinary Catheter] [OM.PC] Q24H 12/14/18 18:22 Cooling Warming Measures [RC] ASDIRECTED 12/14/18 18:25 Communication Order [RC] ASDIRECTED 12/14/18 Dinner Nothing per Oral Now Diet [DIET] 12/15/18 08:20 Albuterol/Ipratropium [DuoNeb 3.0-0.5 MG/3 ML] 3 ml NEB Q6HRRT PRN 12/15/18 08:21 RT Aerosol Therapy [RC] ASDIRECTED 12/15/18 08:50 Mometasone/Formoterol [Dulera 200-5 MCG] 0 puff IH BID 12/15/18 09:00 Pantoprazole [ProTONIX IV] 40 mg IVPUSH DAILY 12/15/18 10:35 EKG 12 Lead [EKG Documentation Completion] [RC] DAILY 12/15/18 10:40 Up to Chair [RC] ASDIRECTED 12/15/18 11:20 PT Evaluation and Treatment [CONS] Routine 12/15/18 13:15 Dextrose 5%-0.9% NaCl [Dextrose 5%-Normal Saline] 1,000 ml IV ASDIRECTED - Plan Plan:: Small bowel obstruction * Nothing out of the NG tube overnight so we will clamp it today and see how she does. 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 This is her second episode in 2 months. * Nothing by mouth except ice chips * Consider transfer to [place] if she worsens. * Abdominal x-ray shows decreased bowel. It is improved compared to the CT scan. Hypovolemia/dehydration * Patient's kidney function has improved. She continues to be tachycardic but this may be due to a decrease overall in her beta casandra. We will increase her beta casandra today. * Patient has normalized potassium and creatinine. * Repeat labs in the morning Congestive heart failure * Follow strict ins and outs and daily weights. * Continue urinary catheter * Monitor patient on telemetry * Patient is unable to take her beta casandra by mouth. Increase metoprolol to 5 mg every 6 hours. Pseudomyxoma peritonei * Treat patient's small bowel obstruction and rehydrate. Slowly increase diet as tolerated. * Patient will need to follow-up with surgery as an outpatient. Hypertension * Monitor blood pressure closely and continue IV metoprolol Anemia * Patient had a drop in her hemoglobin. This is likely dilutional. Her baseline hemoglobin appears to be in the nines. Continue to follow. Chronic medical conditions: Asthma, which arthritis, Sjogren's syndrome, arthritis, pacemaker VTE prophylaxis with Lovenox
[2018-12-15] MEDS ORDERED: Metoprolol Tartrate 5 MG/5 ML SDV IVPUSH ONE (15:00)
[2018-12-15] MEDS ORDERED: Metoprolol Tartrate 5 MG/5 ML SDV IVPUSH SCH (15:00)
[2018-12-15] MEDS: Non-Formulary Medication 1 Each (Nystatin 1 APPLIC) TOP SCH ×2 (18:43→18:44)
[2018-12-16] MEDS: Dextrose 5%-0.9% NaCl 1,000 ML IV SCH (03:51)
[2018-12-16] MEDS: Metoprolol Tartrate 5 MG/5 ML SDV IVPUSH SCH ×2 (03:52→09:11)
[2018-12-16] MEDS ORDERED: Lactated Ringers 1,000 ML IV SCH (08:30)
[2018-12-16] MEDS: Albuterol/Ipratropium 3.0-0.5 MG/3 ML Neb Soln NEB PRN ×3 (08:40→21:04)
[2018-12-16] MEDS: Formoterol/Mometasone 200-5 MCG 8.8 GM Inhaler IH SCH ×2 (08:42→21:04)
[2018-12-16] MEDS: Pantoprazole 40 MG Vial IVPUSH SCH (09:11)
[2018-12-16] MEDS: Enoxaparin 40 MG/0.4 ML Syringe SUBCUT SCH (09:11)
--- NOTE | 2018-12-16 11:10 | PCM.PN ---
- General Info Date of Service: 12/16/18 Admission Dx/Problem (Free Text): Admission Diagnosis/Problem Admission Diagnosis/Problem Small bowel obstruction Subjective Update: Patient did well overnight. She denies any abdominal pain, nausea, vomiting, shortness of breath, or chest pain. Pt. tolerated clear liquid diet overnight. She is asking to slowly advance her diet over the next two days. - Review of Systems General: Reports: No Symptoms. Denies: Fever HEENT: Reports: No Symptoms Pulmonary: Reports: No Symptoms. Denies: Shortness of Breath, Pleuritic Chest Pain Cardiovascular: Reports: No Symptoms. Denies: Chest Pain, Palpitations - Patient Data Vitals - Most Recent: Last Vital Signs Temp 97.7 F 12/16/18 03:50 Pulse 111 H 12/16/18 09:11 Resp 16 12/16/18 03:50 BP 138/62 12/16/18 09:11 Pulse Ox 90 L 12/16/18 08:43 Weight - Most Recent: 122 lb 9.6 oz I&O - Last 24 Hours: Intake & Output 12/15/18 12/16/18 12/16/18 22:59 06:59 14:59 Intake Total 2250 960 Output Total 500 450 Balance 1750 510 Lab Results Last 24 Hours: Laboratory Results - last 24 hr 12/16/18 12/16/18 Range/Units 05:40 05:40 WBC 6.43 (3.98-10.04) K/mm3 RBC 2.82 L (3.98-5.22) M/mm3 Hgb 8.1 L (11.2-15.7) gm/L Hct 27.0 L (34.1-44.9) % MCV 95.7 H (79.4-94.8) fl MCH 28.7 (25.6-32.2) pg MCHC 30.0 L (32.2-35.5) g/dl RDW Std Deviation 46.1 (36.4-46.3) fL Plt Count 162 L (182-369) K/mm3 MPV 9.3 L (9.4-12.3) fl Neut % (Auto) 74.0 H (34.0-71.1) % Lymph % (Auto) 16.0 L (19.3-51.7) % [place] % (Auto) 9.8 (4.7-12.5) % Eos % (Auto) 0 L (0.7-5.8) Baso % (Auto) 0.0 L (0.1-1.2) % Neut # (Auto) 4.76 (1.56-6.13) K/mm3 Lymph # (Auto) 1.03 L (1.18-3.74) K/mm3 [place] # (Auto) 0.63 H (0.24-0.36) K/mm3 Eos # (Auto) 0.00 L (0.04-0.36) K/mm3 Baso # (Auto) 0.00 L (0.01-0.08) K/mm3 Sodium 136 (136-145) mEq/L Potassium 4.1 (3.5-5.1) mEq/L Chloride 105 (98-107) mEq/L Carbon Dioxide 21 (21-32) mEq/L Anion Gap 14.1 (5-15) BUN 10 (7-18) mg/dL Creatinine 0.7 (0.55-1.02) mg/dL Est Cr Clr Drug Dosing 63.65 mL/min Estimated GFR (MDRD) > 60 (>60) mL/min BUN/Creatinine Ratio 14.3 (14-18) Glucose 105 (83-115) mg/dL Calcium 7.7 L (8.5-10.1) mg/dL Phosphorus 1.8 L (2.6-4.7) mg/dL Magnesium 2.1 (1.8-2.4) mg/dl Total Bilirubin 0.2 (0.2-1.0) mg/dL AST 32 (15-37) U/L ALT 13 L (14-59) U/L Alkaline Phosphatase 66 (46-116) U/L Total Protein 6.7 (6.4-8.2) g/dl Albumin 2.3 L (3.4-5.0) g/dl Globulin 4.4 gm/dL Albumin/Globulin Ratio 0.5 L (1-2) Med Orders - Current: Current Medications Albuterol (Proventil Hfa) 0 gm INH Q4H PRN PRN Reason: Wheezing Albuterol/Ipratropium (Duoneb 3.0-0.5 Mg/3 Ml) 3 ml NEB Q6HRRT PRN PRN Reason: Dyspnea Last Admin: 12/16/18 08:40 Dose: 3 ml Artificial Tears (Refresh Liquigel 1%) 0 ml EYEBOTH ASDIRECTED PRN PRN Reason: Dry Eyes Enoxaparin Sodium (Lovenox) 40 mg SUBCUT DAILY [facility] Last Admin: 12/16/18 09:11 Dose: 40 mg Lactated Ringer's (Ringers, Lactated) 1,000 mls @ 50 mls/hr IV ASDIRECTED [facility] Metoprolol Tartrate (Lopressor) 5 mg IVPUSH Q6H [facility] Last Admin: 12/16/18 09:11 Dose: 5 mg Mometasone Furoate/Formoterol Fumar (Dulera 200-5 Mcg) 0 puff IH BID [facility] Last Admin: 12/16/18 08:42 Dose: 2 puff Ondansetron HCl (Zofran) 4 mg IV Q4H PRN PRN Reason: Nausea/Vomiting Pantoprazole Sodium (Protonix Iv) 40 mg IVPUSH DAILY [facility] Last Admin: 12/16/18 09:11 Dose: 40 mg Sodium Chloride (Saline Flush) 10 ml FLUSH ASDIRECTED PRN PRN Reason: Keep Vein Open Last Admin: 12/14/18 08:45 Dose: 10 ml Discontinued Medications Diatrizoate Meglum/Diatrizoate Sod (Gastrografin 37%) 120 ml PO ONETIME ONE Stop: 12/14/18 09:56 Last Admin: 12/14/18 10:07 Dose: 45 ml Sodium Chloride (Normal Saline) 1,000 mls @ 1,000 mls/hr IV .BOLUS STA Stop: 12/14/18 09:35 Last Admin: 12/14/18 08:53 Dose: 1,000 mls/hr Sodium Chloride (Normal Saline) 100 mls @ 75 mls/hr IV ASDIRECTED [facility] Last Admin: 12/14/18 10:07 Dose: 75 mls/hr Dextrose/Sodium Chloride (Dextrose 5%-Normal Saline) 1,000 mls @ 150 mls/hr IV ASDIRECTED [facility] Sodium Chloride (Normal Saline) 500 mls @ 999 mls/hr IV .BOLUS [facility] Last Admin: 12/14/18 15:32 Dose: 999 mls/hr Sodium Chloride (Normal Saline) 1,000 mls @ 150 mls/hr IV ASDIRECTED [facility] Last Admin: 12/14/18 16:28 Dose: 150 mls/hr Dextrose/Sodium Chloride (Dextrose 5%-Normal Saline) 1,000 mls @ 150 mls/hr IV ASDIRECTED [facility] Last Admin: 12/15/18 06:01 Dose: 150 mls/hr Magnesium Sulfate 4 gm/ Premix 100 mls @ 25 mls/hr IV ONETIME ONE Stop: 12/15/18 07:56 Last Admin: 12/15/18 09:37 Dose: 25 mls/hr Dextrose/Sodium Chloride (Dextrose 5%-Normal Saline) 1,000 mls @ 100 mls/hr IV ASDIRECTED [facility] Dextrose/Sodium Chloride (Dextrose 5%-Normal Saline) 1,000 mls @ 100 mls/hr IV ASDIRECTED [facility] Dextrose/Sodium Chloride (Dextrose 5%-Normal Saline) 1,000 mls @ 75 mls/hr IV ASDIRECTED [facility] Last Admin: 12/16/18 03:51 Dose: 75 mls/hr Iopamidol (Isovue-370 (76%)) 100 ml IV ONETIME ONE Stop: 12/14/18 09:56 Last Admin: 12/14/18 10:06 Dose: 70 ml Metoprolol Tartrate (Lopressor) 2.5 mg IVPUSH Q6H [facility] Last Admin: 12/15/18 09:38 Dose: 2.5 mg Metoprolol Tartrate (Lopressor) 2.5 mg IVPUSH ONETIME STA Stop: 12/15/18 13:14 Last Admin: 12/15/18 13:47 Dose: 2.5 mg Metoprolol Tartrate (Lopressor) 5 mg IVPUSH Q6H [facility] Metoprolol Tartrate (Lopressor) 2.5 mg IVPUSH ONETIME ONE Stop: 12/15/18 15:01 Last Admin: 12/15/18 15:20 Dose: 2.5 mg Flurbiprofen Sodium [Flurbiprofen Sodium ] 2.5 Ml) 2.5 ml OP ASDIRECTED [facility] Non-Formulary Medication (Nystatin) 1 applic TOP BID [facility] Last Admin: 12/15/18 18:44 Dose: Not Given Ondansetron HCl (Zofran) 4 mg IVPUSH ONETIME ONE Stop: 12/14/18 08:37 Last Admin: 12/14/18 08:51 Dose: 4 mg Budesonide/Formoterol Fumarate (Symbicort) 0 each INH BID [facility] Last Admin: 12/15/18 09:17 Dose: Not Given Cyclosporine Eye (Drops Ptom) 1 each EYEBOTH ASDIRECTED PRN PRN Reason: Dry Eyes Sodium Chloride (Saline Flush) 10 ml FLUSH ONETIME PRN PRN Reason: IV FLUSH Last Admin: 12/14/18 10:07 Dose: 10 ml - Exam Quality Assessment: No: Supplemental Oxygen General: Alert, Oriented HEENT: Pupils Equal, Pupils Reactive Lungs: Normal Respiratory Effort, Rales (mild right lower rales) Cardiovascular: Regular Rate, Regular Rhythm Extremities: Normal Inspection, No Pedal Edema Neurological: No New Focal Deficit Psy/Mental Status: Alert, Normal Affect EKG INTERPRETATION EKG Date: 12/15/18 Rhythm: Other (sinus tachy) Rate (Beats/Min): 101 EKG Interpretation Comments: atrial sensed, ventricular paced. - Problem List & Annotations (1) Pseudomyxoma peritonei SNOMED Code(s): 003563870 Code(s): C78.6 - SECONDARY MALIGNANT NEOPLASM OF RETROPERITON AND PERITONEUM Status: Acute Current Visit: Yes (2) CHF (congestive heart failure) SNOMED Code(s): 73244067 Code(s): I50.9 - HEART FAILURE, UNSPECIFIED Status: Acute Current Visit: Yes (3) HTN (hypertension) SNOMED Code(s): 10507542 Code(s): I10 - ESSENTIAL (PRIMARY) HYPERTENSION Status: Acute Current Visit: Yes (4) Asthma SNOMED Code(s): 717508937 Code(s): J45.909 - UNSPECIFIED ASTHMA, UNCOMPLICATED Status: Acute Current Visit: Yes (5) Sjogrens syndrome SNOMED Code(s): 04212511 Code(s): M35.00 - SICCA SYNDROME, UNSPECIFIED Status: Acute Current Visit : Yes (6) Rheumatoid arthritis SNOMED Code(s): 90673143 Code(s): M06.9 - RHEUMATOID ARTHRITIS, UNSPECIFIED Status: Acute Current Visit: Yes (7) Small bowel obstruction SNOMED Code(s): 850285112 Code(s): K56.609 - UNSP INTESTNL OBST, UNSP TO PARTIAL VERSUS COMPLETE OBST Status: Acute Current Visit: Yes - Problem List Review Problem List Initiated/Reviewed/Updated: Yes - My Orders Last 24 Hours: My Active Orders 12/15/18 10:35 EKG 12 Lead [EKG Documentation Completion] [RC] DAILY 12/15/18 10:40 Up to Chair [RC] ASDIRECTED 12/15/18 11:20 PT Evaluation and Treatment [CONS] Routine 12/15/18 21:00 Metoprolol Tartrate [Lopressor] 5 mg IVPUSH Q6H 12/15/18 Dinner Full Liquid Diet [DIET] 12/16/18 08:26 Remove Urinary Catheter [Urinary Catheter Removal] [RC] Per Unit Routine 12/16/18 08:30 Lactated Ringers [Ringers, Lactated] 1,000 ml IV ASDIRECTED 12/16/18 10:53 Communication Order [RC] ASDIRECTED 12/17/18 05:11 CBC WITH AUTO DIFF [HEME] AM CMP [COMPREHENSIVE METABOLIC PN,CMP] [CHEM] AM MAGNESIUM [CHEM] AM PHOSPHORUS [CHEM] AM - Plan Plan:: Small bowel obstruction * NG tube clamped overnight. Tolerating clear liquids po. 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 This is her second episode in 2 months. * Advance diet as tolerated over the next 2 days. * Consider surgical consult if she worsens. Hypovolemia/dehydration * Resolved Congestive heart failure * Follow strict ins and outs and daily weights. * D/C urinary catheter * Monitor patient on telemetry * Switch from IV to home PO beta casandra - Coreg 6.25 mg BID. 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. Hypertension * As above Anemia * Patient had a drop in her hemoglobin. This is likely dilutional. Her baseline hemoglobin appears to be in the nines. Continue to follow. Chronic medical conditions: Asthma, which arthritis, Sjogren's syndrome, arthritis, pacemaker VTE prophylaxis with Lovenox
[2018-12-16] MEDS ORDERED: Carvedilol 6.25 MG Tab PO SCH (11:15)
[2018-12-16] MEDS: Metoclopramide 10 MG/2 ML SDV IVPUSH SCH ×2 (17:26→23:55)
[2018-12-16] MEDS ORDERED: Metoprolol Tartrate 5 MG/5 ML SDV IVPUSH PRN (17:46)
[2018-12-16] MEDS ORDERED: hydrALAZINE 20 MG/ML SDV IVPUSH PRN (17:46)
[2018-12-16] MEDS ORDERED: Ondansetron 4 MG Tab.DIS PO PRN (19:08)
[2018-12-16] MEDS ORDERED: Albuterol/Ipratropium 3.0-0.5 MG/3 ML Neb Soln NEB PRN (19:11)
[2018-12-16] MEDS ORDERED: Acetaminophen/Butalbital/Caffeine 325-50-40 MG Tab PO PRN (19:11)
[2018-12-16] MEDS: Famotidine 20 MG/2 ML SDV IVPUSH SCH (21:15)
[2018-12-17] MEDS: Metoclopramide 10 MG/2 ML SDV IVPUSH SCH ×4 (05:54→23:40)
[2018-12-17] MEDS ORDERED: Pantoprazole 40 MG Tab.CR PO SCH (07:00)
--- NOTE | 2018-12-17 07:36 | PCM.PN ---
- General Info Date of Service: 12/17/18 Admission Dx/Problem (Free Text): Admission Diagnosis/Problem Admission Diagnosis/Problem Small bowel obstruction Subjective Update: No overnight or acute issues. She rested well last night. She had another bowel movement last night. She is passing gas. She complains of frequent urination and worried about weight gain. She has gained 5lbs since admission per weight chart. No reports of bloody or black stools but her Hgb continues to drop. She is now at 7.6. Her vitals are fairly stable. Functional Status: Reports: Pain Controlled, Tolerating Diet, Ambulating, Urinating. Denies: New Symptoms - Review of Systems General: Denies: Fever, Weakness, Fatigue, Malaise HEENT: Reports: No Symptoms Pulmonary: Denies: Shortness of Breath Cardiovascular: Denies: Chest Pain, Dyspnea on Exertion, Lightheadedness Gastrointestinal: Reports: Flatus. Denies: Abdominal Pain, Decreased Appetite, Hematochezia, Melena, Nausea, Vomiting Genitourinary: Reports: No Symptoms, Frequency Musculoskeletal: Reports: No Symptoms. Denies: Joint Swelling Skin: Denies: Cyanosis, Mottled, Pallor, Bruising Neurological: Reports: Gait Disturbance. Denies: Confusion, Weakness Psychiatric: Denies: Depression, Anxiety, Agitation, Hallucinations Systems Review Comment:: As noted above - Patient Data Vitals - Most Recent: Last Vital Signs Temp 36.9 C 12/17/18 03:25 Pulse 100 12/17/18 03:25 Resp 12 12/17/18 03:25 BP 138/59 L 12/17/18 03:25 Pulse Ox 92 L 12/17/18 03:25 Weight - Most Recent: 57.742 kg I&O - Last 24 Hours: Intake & Output 12/16/18 12/17/18 12/17/18 22:59 06:59 14:59 Intake Total 1871 500 Output Total 1150 Balance 1871 -650 Lab Results Last 24 Hours: Laboratory Results - last 24 hr 12/17/18 12/17/18 Range/Units 05:35 05:35 WBC 4.62 (3.98-10.04) K/mm3 RBC 2.71 L (3.98-5.22) M/mm3 Hgb 7.6 L (11.2-15.7) gm/L Hct 25.7 L (34.1-44.9) % MCV 94.8 (79.4-94.8) fl MCH 28.0 (25.6-32.2) pg MCHC 29.6 L (32.2-35.5) g/dl RDW Std Deviation 46.3 (36.4-46.3) fL Plt Count 159 L (182-369) K/mm3 MPV 9.4 (9.4-12.3) fl Neut % (Auto) 69.7 (34.0-71.1) % Lymph % (Auto) 18.6 L (19.3-51.7) % [place] % (Auto) 11.5 (4.7-12.5) % Eos % (Auto) 0 L (0.7-5.8) Baso % (Auto) 0.0 L (0.1-1.2) % Neut # (Auto) 3.22 (1.56-6.13) K/mm3 Lymph # (Auto) 0.86 L (1.18-3.74) K/mm3 [place] # (Auto) 0.53 H (0.24-0.36) K/mm3 Eos # (Auto) 0.00 L (0.04-0.36) K/mm3 Baso # (Auto) 0.00 L (0.01-0.08) K/mm3 Sodium 135 L (136-145) mEq/L Potassium 3.6 (3.5-5.1) mEq/L Chloride 105 (98-107) mEq/L Carbon Dioxide 23 (21-32) mEq/L Anion Gap 10.6 (5-15) BUN 8 (7-18) mg/dL Creatinine 0.6 (0.55-1.02) mg/dL Est Cr Clr Drug Dosing 74.80 mL/min Estimated GFR (MDRD) > 60 (>60) mL/min BUN/Creatinine Ratio 13.3 L (14-18) Glucose 93 (83-115) mg/dL Calcium 8.0 L (8.5-10.1) mg/dL Phosphorus 2.3 L (2.6-4.7) mg/dL Magnesium 1.8 (1.8-2.4) mg/dl Total Bilirubin 0.2 (0.2-1.0) mg/dL AST 28 (15-37) U/L ALT 13 L (14-59) U/L Alkaline Phosphatase 75 (46-116) U/L Total Protein 6.3 L (6.4-8.2) g/dl Albumin 2.2 L (3.4-5.0) g/dl Globulin 4.1 gm/dL Albumin/Globulin Ratio 0.5 L (1-2) Med Orders - Current: Current Medications Acetaminophen (Tylenol) 650 mg PO Q4H PRN PRN Reason: Pain (Mild 1-3)/fever Acetaminophen/Butalbital/Caffeine (Fioricet 325-50-40 Mg) 1 tab PO Q6H PRN PRN Reason: Headache/Pain Albuterol (Proventil Hfa) 0 gm INH Q4H PRN PRN Reason: Wheezing Albuterol/Ipratropium (Duoneb 3.0-0.5 Mg/3 Ml) 3 ml NEB Q4H PRN PRN Reason: Shortness Of Breath/wheezing Last Admin: 12/16/18 21:04 Dose: 3 ml Artificial Tears (Refresh Liquigel 1%) 0 ml EYEBOTH ASDIRECTED PRN PRN Reason: Dry Eyes Enoxaparin Sodium (Lovenox) 40 mg SUBCUT DAILY [facility] Last Admin: 12/16/18 09:11 Dose: 40 mg Famotidine (Pepcid) 20 mg IVPUSH BID [facility] Last Admin: 12/16/18 21:15 Dose: 20 mg Hydralazine HCl (Apresoline) 20 mg IVPUSH Q4H PRN PRN Reason: Hypertension Magnesium Sulfate (Pharmacy To Dose - Magnesium Replacement) 1 dose .XX ASDIRECTED [facility] Metoclopramide HCl (Reglan) 5 mg IVPUSH Q6H [facility] Last Admin: 12/17/18 05:54 Dose: 5 mg Metoprolol Tartrate (Lopressor) 5 mg IVPUSH Q4H PRN PRN Reason: Tachycardia Mometasone Furoate/Formoterol Fumar (Dulera 200-5 Mcg) 0 puff IH BID [facility] Last Admin: 12/16/18 21:04 Dose: 2 puff Ondansetron HCl (Zofran) 4 mg IV Q4H PRN PRN Reason: Nausea/Vomiting Ondansetron HCl (Zofran Odt) 4 mg PO Q6H PRN PRN Reason: nausea, able to take PO Potassium Chloride (Pharmacy To Dose - Potassium Replacement) 1 dose .XX ASDIRECTED [facility] Sodium Chloride (Saline Flush) 10 ml FLUSH ASDIRECTED PRN PRN Reason: Keep Vein Open Last Admin: 12/14/18 08:45 Dose: 10 ml Discontinued Medications Albuterol/Ipratropium (Duoneb 3.0-0.5 Mg/3 Ml) 3 ml NEB Q6HRRT PRN PRN Reason: Dyspnea Last Admin: 12/16/18 14:46 Dose: 3 ml Albuterol/Ipratropium (Duoneb 3.0-0.5 Mg/3 Ml) 3 ml NEB Q6HRRT PRN PRN Reason: Shortness of Breath Carvedilol (Coreg) 6.25 mg PO BID [facility] Last Admin: 12/16/18 12:25 Dose: 6.25 mg Diatrizoate Meglum/Diatrizoate Sod (Gastrografin 37%) 120 ml PO ONETIME ONE Stop: 12/14/18 09:56 Last Admin: 12/14/18 10:07 Dose: 45 ml Sodium Chloride (Normal Saline) 1,000 mls @ 1,000 mls/hr IV .BOLUS STA Stop: 12/14/18 09:35 Last Admin: 12/14/18 08:53 Dose: 1,000 mls/hr Sodium Chloride (Normal Saline) 100 mls @ 75 mls/hr IV ASDIRECTED [facility] Last Admin: 12/14/18 10:07 Dose: 75 mls/hr Dextrose/Sodium Chloride (Dextrose 5%-Normal Saline) 1,000 mls @ 150 mls/hr IV ASDIRECTED [facility] Sodium Chloride (Normal Saline) 500 mls @ 999 mls/hr IV .BOLUS [facility] Last Admin: 12/14/18 15:32 Dose: 999 mls/hr Sodium Chloride (Normal Saline) 1,000 mls @ 150 mls/hr IV ASDIRECTED [facility] Last Admin: 12/14/18 16:28 Dose: 150 mls/hr Dextrose/Sodium Chloride (Dextrose 5%-Normal Saline) 1,000 mls @ 150 mls/hr IV ASDIRECTED [facility] Last Admin: 12/15/18 06:01 Dose: 150 mls/hr Magnesium Sulfate 4 gm/ Premix 100 mls @ 25 mls/hr IV ONETIME ONE Stop: 12/15/18 07:56 Last Admin: 12/15/18 09:37 Dose: 25 mls/hr Dextrose/Sodium Chloride (Dextrose 5%-Normal Saline) 1,000 mls @ 100 mls/hr IV ASDIRECTED [facility] Dextrose/Sodium Chloride (Dextrose 5%-Normal Saline) 1,000 mls @ 100 mls/hr IV ASDIRECTED [facility] Dextrose/Sodium Chloride (Dextrose 5%-Normal Saline) 1,000 mls @ 75 mls/hr IV ASDIRECTED [facility] Last Admin: 12/16/18 03:51 Dose: 75 mls/hr Lactated Ringer's (Ringers, Lactated) 1,000 mls @ 50 mls/hr IV ASDIRECTED [facility] Last Admin: 12/16/18 12:24 Dose: 50 mls/hr Iopamidol (Isovue-370 (76%)) 100 ml IV ONETIME ONE Stop: 12/14/18 09:56 Last Admin: 12/14/18 10:06 Dose: 70 ml Metoprolol Tartrate (Lopressor) 2.5 mg IVPUSH Q6H [facility] Last Admin: 12/15/18 09:38 Dose: 2.5 mg Metoprolol Tartrate (Lopressor) 2.5 mg IVPUSH ONETIME [facility] Stop: 12/15/18 13:14 Last Admin: 12/15/18 13:47 Dose: 2.5 mg Metoprolol Tartrate (Lopressor) 5 mg IVPUSH Q6H [facility] Metoprolol Tartrate (Lopressor) 2.5 mg IVPUSH ONETIME ONE Stop: 12/15/18 15:01 Last Admin: 12/15/18 15:20 Dose: 2.5 mg Metoprolol Tartrate (Lopressor) 5 mg IVPUSH Q6H [facility] Last Admin: 12/16/18 09:11 Dose: 5 mg Flurbiprofen Sodium [Flurbiprofen Sodium ] 2.5 Ml) 2.5 ml OP ASDIRECTED [facility] Non-Formulary Medication (Nystatin) 1 applic TOP BID [facility] Last Admin: 12/15/18 18:44 Dose: Not Given Ondansetron HCl (Zofran) 4 mg IVPUSH ONETIME ONE Stop: 12/14/18 08:37 Last Admin: 12/14/18 08:51 Dose: 4 mg Pantoprazole Sodium (Protonix Iv) 40 mg IVPUSH DAILY [facility] Last Admin: 12/16/18 09:11 Dose: 40 mg Pantoprazole Sodium (Protonix) 40 mg PO DAILY@0700 [facility] Budesonide/Formoterol Fumarate (Symbicort) 0 each INH BID [facility] Last Admin: 12/15/18 09:17 Dose: Not Given Cyclosporine Eye (Drops Ptom) 1 each EYEBOTH ASDIRECTED PRN PRN Reason: Dry Eyes Sodium Chloride (Saline Flush) 10 ml FLUSH ONETIME PRN PRN Reason: IV FLUSH Last Admin: 12/14/18 10:07 Dose: 10 ml - Exam General: Alert, Oriented, Cooperative, No Acute Distress HEENT: Pupils Equal, Pupils Reactive, EOMI, Mucous Membr. Moist/[place], Other ( NGT in placed) Neck: Supple Lungs: Normal Respiratory Effort, Decreased Breath Sounds, Crackles (minimal at the bases) Cardiovascular: Regular Rate, Regular Rhythm GI/Abdominal Exam: Soft, Non-Tender, No Organomegaly, No Distention, No Abnormal Bruit, Abnormal Bowel Sounds (but improved bowel sounds), Other ( midline abdominal scar) (Female) Exam: Deferred Back Exam: Normal Inspection, Decreased Range of Motion Extremities: Normal Inspection, Normal Range of Motion, Non-Tender, Normal Capillary Refill, Pedal Edema, Other (increased bilater lower extremity edema) Peripheral Pulses: 2+: Dorsalis Pedis (L), Dorsalis Pedis (R) Skin: Warm, Dry, Intact Neurological: No New Focal Deficit. No: Normal Gait Psy/Mental Status: Alert, Normal Affect, Normal Mood - Problem List Review Problem List Initiated/Reviewed/Updated: Yes - My Orders Last 24 Hours: My Active Orders 12/16/18 17:16 Ambulate [RC] QID 12/16/18 17:46 Metoprolol Tartrate [Lopressor] 5 mg IVPUSH Q4H PRN hydrALAZINE [Apresoline] 20 mg IVPUSH Q4H PRN 12/16/18 18:00 Metoclopramide [Reglan] 5 mg IVPUSH Q6H Pharmacy to Dose - Magnesium R [Pharmacy to Dose - Magnesium Replacement] 1 dose .XX ASDIRECTED Pharmacy to Dose - Potassium R [Pharmacy to Dose - Potassium Replacement] 1 dose .XX ASDIRECTED 12/16/18 19:08 Oxygen Therapy [RC] PRN Acetaminophen [Tylenol] 650 mg PO Q4H PRN Albuterol/Ipratropium [DuoNeb 3.0-0.5 MG/3 ML] 3 ml NEB Q4H PRN Ondansetron [Zofran ODT] 4 mg PO Q6H PRN 12/16/18 19:11 Acetaminophen/Butalbital/Caff [Fioricet 325-50-40 MG] 1 tab PO Q6H PRN 12/16/18 21:00 Famotidine [Pepcid] 20 mg IVPUSH BID 12/16/18 Breakfast Clear Liquid Diet [DIET] - Plan Plan:: Assessment/Plan: Acute: Small bowel obstruction, Improving * Risk factor: Previous abdominal surgery * Small 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 This is her second episode in 2 months * Discontinue NGT-high risk for development of rhinitis plus she had 2 bowel movements * Advance diet to full liquid then regular (non-fatty/nongreasy/non-dairy meal) as tolerated * Consider surgical consult if she worsens Congestive Heart Failure * Unknown EF; She is now from around here * Follow strict ins and outs and daily weights * Concerned about volume overload; has crackles on her bases and peripheral edema * Discontinued IV fluid yesterday; she is able to drink * Check for ProBNP level; she gained 5lbs since admission and whined about leg edema * Will diurese her and she is okay with frequent bathroom breaks 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 Hypertension, Improved * Likely 2/2 fluid retention/Volume overload * Will diurese her Anemia * Patient had a drop in her hemoglobin; baseline is Hgb is 12 grams on presentation * Likely hemo-dilutional from aggressive hydration * Consider iron panel and guaiac stool test since she carries above dx/o pseudomyxoma peritonei Resolved: S/p Hypovolemia/dehydration * 2/2 GI loss and NPO status Chronic medical conditions: Asthma, which arthritis, Sjogren's syndrome, arthritis, pacemaker Plan: She is much better clinically Continue to ambulate as much as she can Routine AM Labs GI/VTE prophylaxis: H2B/Lovenox SubQ SW/CM for d/c planning Additional orders as above Code Status: 1
[2018-12-17] MEDS: Formoterol/Mometasone 200-5 MCG 8.8 GM Inhaler IH SCH ×2 (08:16→21:30)
[2018-12-17] MEDS: Albuterol/Ipratropium 3.0-0.5 MG/3 ML Neb Soln NEB PRN ×2 (08:16→21:30)
[2018-12-17] MEDS ORDERED: Furosemide 20 MG/2 ML VIAL IVPUSH ONE (08:37)
[2018-12-17] MEDS ORDERED: Hydrochlorothiazide 25 MG Tab PO ONE (09:00)
[2018-12-17] MEDS: Famotidine 20 MG/2 ML SDV IVPUSH SCH ×2 (10:31→21:22)
[2018-12-17] MEDS: Enoxaparin 40 MG/0.4 ML Syringe SUBCUT SCH (10:31)
[2018-12-17] MEDS: Furosemide 20 MG/2 ML VIAL IVPUSH SCH (14:11)
[2018-12-17] MEDS: Carvedilol 12.5 MG Tab PO SCH (21:22)
[2018-12-18] MEDS: Furosemide 20 MG/2 ML VIAL IVPUSH SCH ×2 (06:53→13:25)
[2018-12-18] MEDS: Metoclopramide 10 MG/2 ML SDV IVPUSH SCH ×4 (06:53→20:26)
--- NOTE | 2018-12-18 08:23 | PCM.PN ---
- General Info Date of Service: 12/18/18 Admission Dx/Problem (Free Text): Admission Diagnosis/Problem Admission Diagnosis/Problem Small bowel obstruction Subjective Update: No overnight or acute issues. She rested well last night. She had another bowel movement (diarrhea) last night. She is passing gas. Her Hgb is now 7.9 (7.6 yesterday) but her K and Mg remains mildly low. She just started regular meal yesterday and she has been receiving diuretics due to volume overload. So far she has lost 2lbs since yesterday. He proBNP is improved to 3971. Her heme- occult test is negative. She has been ambulating a lot. Her vitals remain stable. Functional Status: Reports: Pain Controlled, Tolerating Diet, Ambulating, Urinating. Denies: New Symptoms - Review of Systems General: Denies: Fever, Weakness, Fatigue, Malaise, Chills HEENT: Reports: No Symptoms Pulmonary: Denies: Shortness of Breath, Pleuritic Chest Pain, Cough, Wheezing Cardiovascular: Reports: No Symptoms Gastrointestinal: Denies: Abdominal Pain, Nausea, Vomiting - Patient Data Vitals - Most Recent: Last Vital Signs Temp 37.4 C 12/18/18 07:54 Pulse 88 12/18/18 07:54 Resp 14 12/18/18 07:54 BP 137/65 12/18/18 07:54 Pulse Ox 91 L 12/18/18 07:54 Weight - Most Recent: 57.107 kg I&O - Last 24 Hours: Intake & Output 12/17/18 12/18/18 12/18/18 22:59 06:59 14:59 Intake Total 1280 400 Output Total 1100 1900 Balance 180 -1500 Lab Results Last 24 Hours: Laboratory Results - last 24 hr 12/17/18 12/17/18 12/18/18 Range/Units 12:05 19:07 05:45 WBC 3.72 L (3.98-10.04) K/mm3 RBC 2.76 L (3.98-5.22) M/mm3 Hgb 8.6 L 7.9 L (11.2-15.7) gm/L Hct 27.7 L 25.9 L (34.1-44.9) % MCV 93.8 (79.4-94.8) fl MCH 28.6 (25.6-32.2) pg MCHC 30.5 L (32.2-35.5) g/dl RDW Std Deviation 44.8 (36.4-46.3) fL Plt Count 187 (182-369) K/mm3 MPV 10.0 (9.4-12.3) fl Neut % (Auto) 66.9 (34.0-71.1) % Lymph % (Auto) 20.2 (19.3-51.7) % [place] % (Auto) 12.6 H (4.7-12.5) % Eos % (Auto) 0 L (0.7-5.8) Baso % (Auto) 0.0 L (0.1-1.2) % Neut # (Auto) 2.49 (1.56-6.13) K/mm3 Lymph # (Auto) 0.75 L (1.18-3.74) K/mm3 [place] # (Auto) 0.47 H (0.24-0.36) K/mm3 Eos # (Auto) 0.00 L (0.04-0.36) K/mm3 Baso # (Auto) 0.00 L (0.01-0.08) K/mm3 Manual Slide Review Not Reportable Sodium (136-145) mEq/L Potassium (3.5-5.1) mEq/L Chloride (98-107) mEq/L Carbon Dioxide (21-32) mEq/L Anion Gap (5-15) BUN (7-18) mg/dL Creatinine (0.55-1.02) mg/dL Est Cr Clr Drug Dosing mL/min Estimated GFR (MDRD) (>60) mL/min BUN/Creatinine Ratio (14-18) Glucose (83-115) mg/dL Calcium (8.5-10.1) mg/dL Magnesium (1.8-2.4) mg/dl NT-Pro-B Natriuret Pep 5313 H (0-125) pg/mL 12/18/18 12/18/18 Range/Units 05:45 05:45 WBC (3.98-10.04) K/mm3 RBC (3.98-5.22) M/mm3 Hgb (11.2-15.7) gm/L Hct (34.1-44.9) % MCV (79.4-94.8) fl MCH (25.6-32.2) pg MCHC (32.2-35.5) g/dl RDW Std Deviation (36.4-46.3) fL Plt Count (182-369) K/mm3 MPV (9.4-12.3) fl Neut % (Auto) (34.0-71.1) % Lymph % (Auto) (19.3-51.7) % [place] % (Auto) (4.7-12.5) % Eos % (Auto) (0.7-5.8) Baso % (Auto) (0.1-1.2) % Neut # (Auto) (1.56-6.13) K/mm3 Lymph # (Auto) (1.18-3.74) K/mm3 [place] # (Auto) (0.24-0.36) K/mm3 Eos # (Auto) (0.04-0.36) K/mm3 Baso # (Auto) (0.01-0.08) K/mm3 Manual Slide Review Sodium 135 L (136-145) mEq/L Potassium 3.4 L (3.5-5.1) mEq/L Chloride 103 (98-107) mEq/L Carbon Dioxide 25 (21-32) mEq/L Anion Gap 10.4 (5-15) BUN 8 (7-18) mg/dL Creatinine 0.7 (0.55-1.02) mg/dL Est Cr Clr Drug Dosing 64.12 mL/min Estimated GFR (MDRD) > 60 (>60) mL/min BUN/Creatinine Ratio 11.4 L (14-18) Glucose 95 (83-115) mg/dL Calcium 8.3 L (8.5-10.1) mg/dL Magnesium 1.4 L (1.8-2.4) mg/dl NT-Pro-B Natriuret Pep 3971 H (0-125) pg/mL José Miguel Results Last 24 Hours: Microbiology 12/17/18 12:10 Stool Occult Blood (JOSÉ MIGUEL) - Final Stool / Feces NEGATIVE OCCULT BLOOD Med Orders - Current: Current Medications Acetaminophen (Tylenol) 650 mg PO Q4H PRN PRN Reason: Pain (Mild 1-3)/fever Acetaminophen/Butalbital/Caffeine (Fioricet 325-50-40 Mg) 1 tab PO Q6H PRN PRN Reason: Headache/Pain Albuterol (Proventil Hfa) 0 gm INH Q4H PRN PRN Reason: Wheezing Albuterol/Ipratropium (Duoneb 3.0-0.5 Mg/3 Ml) 3 ml NEB Q4H PRN PRN Reason: Shortness Of Breath/wheezing Last Admin: 12/17/18 21:30 Dose: 3 ml Artificial Tears (Refresh Liquigel 1%) 0 ml EYEBOTH ASDIRECTED PRN PRN Reason: Dry Eyes Carvedilol (Coreg) 12.5 mg PO BID [facility] Last Admin: 12/17/18 21:22 Dose: 12.5 mg Famotidine (Pepcid) 20 mg IVPUSH BID [facility] Last Admin: 12/17/18 21:22 Dose: 20 mg Furosemide (Lasix) 10 mg IVPUSH BIDDIURETIC [facility] Stop: 12/19/18 06:01 Last Admin: 12/18/18 06:53 Dose: 10 mg Hydralazine HCl (Apresoline) 20 mg IVPUSH Q4H PRN PRN Reason: Hypertension Hydrochlorothiazide (Hydrochlorothiazide) 12.5 mg PO BIDDIURETIC [facility] Hydrochlorothiazide (Hydrochlorothiazide) 12.5 mg PO DAILY [facility] Magnesium Sulfate (Pharmacy To Dose - Magnesium Replacement) 0 dose .XX ASDIRECTED PRN PRN Reason: RX TO WATCH MAG Metoclopramide HCl (Reglan) 5 mg IVPUSH Q6H [facility] Last Admin: 12/18/18 06:53 Dose: 5 mg Metoprolol Tartrate (Lopressor) 5 mg IVPUSH Q4H PRN PRN Reason: Tachycardia Last Admin: 12/17/18 14:10 Dose: 5 mg Mometasone Furoate/Formoterol Fumar (Dulera 200-5 Mcg) 0 puff IH BID [facility] Last Admin: 12/17/18 21:30 Dose: 2 puff Ondansetron HCl (Zofran) 4 mg IV Q4H PRN PRN Reason: Nausea/Vomiting Ondansetron HCl (Zofran Odt) 4 mg PO Q6H PRN PRN Reason: nausea, able to take PO Potassium Chloride (Pharmacy To Dose - Potassium Replacement) 0 dose .XX ASDIRECTED PRN PRN Reason: RX TO WATCH K Sodium Chloride (Saline Flush) 10 ml FLUSH ASDIRECTED PRN PRN Reason: Keep Vein Open Last Admin: 12/14/18 08:45 Dose: 10 ml Discontinued Medications Albuterol/Ipratropium (Duoneb 3.0-0.5 Mg/3 Ml) 3 ml NEB Q6HRRT PRN PRN Reason: Dyspnea Last Admin: 12/16/18 14:46 Dose: 3 ml Albuterol/Ipratropium (Duoneb 3.0-0.5 Mg/3 Ml) 3 ml NEB Q6HRRT PRN PRN Reason: Shortness of Breath Carvedilol (Coreg) 6.25 mg PO BID [facility] Last Admin: 12/16/18 12:25 Dose: 6.25 mg Diatrizoate Meglum/Diatrizoate Sod (Gastrografin 37%) 120 ml PO ONETIME ONE Stop: 12/14/18 09:56 Last Admin: 12/14/18 10:07 Dose: 45 ml Enoxaparin Sodium (Lovenox) 40 mg SUBCUT DAILY [facility] Last Admin: 12/17/18 10:31 Dose: 40 mg Furosemide (Lasix) 10 mg IVPUSH NOW ONE Stop: 12/17/18 08:38 Last Admin: 12/17/18 10:31 Dose: 10 mg Hydrochlorothiazide (Hydrochlorothiazide) 25 mg PO ONETIME ONE Stop: 12/17/18 09:01 Last Admin: 12/17/18 10:31 Dose: 25 mg Sodium Chloride (Normal Saline) 1,000 mls @ 1,000 mls/hr IV .BOLUS STA Stop: 12/14/18 09:35 Last Admin: 12/14/18 08:53 Dose: 1,000 mls/hr Sodium Chloride (Normal Saline) 100 mls @ 75 mls/hr IV ASDIRECTED [facility] Last Admin: 12/14/18 10:07 Dose: 75 mls/hr Dextrose/Sodium Chloride (Dextrose 5%-Normal Saline) 1,000 mls @ 150 mls/hr IV ASDIRECTED [facility] Sodium Chloride (Normal Saline) 500 mls @ 999 mls/hr IV .BOLUS [facility] Last Admin: 12/14/18 15:32 Dose: 999 mls/hr Sodium Chloride (Normal Saline) 1,000 mls @ 150 mls/hr IV ASDIRECTED [facility] Last Admin: 12/14/18 16:28 Dose: 150 mls/hr Dextrose/Sodium Chloride (Dextrose 5%-Normal Saline) 1,000 mls @ 150 mls/hr IV ASDIRECTED [facility] Last Admin: 12/15/18 06:01 Dose: 150 mls/hr Magnesium Sulfate 4 gm/ Premix 100 mls @ 25 mls/hr IV ONETIME ONE Stop: 12/15/18 07:56 Last Admin: 12/15/18 09:37 Dose: 25 mls/hr Dextrose/Sodium Chloride (Dextrose 5%-Normal Saline) 1,000 mls @ 100 mls/hr IV ASDIRECTED [facility] Dextrose/Sodium Chloride (Dextrose 5%-Normal Saline) 1,000 mls @ 100 mls/hr IV ASDIRECTED [facility] Dextrose/Sodium Chloride (Dextrose 5%-Normal Saline) 1,000 mls @ 75 mls/hr IV ASDIRECTED [facility] Last Admin: 12/16/18 03:51 Dose: 75 mls/hr Lactated Ringer's (Ringers, Lactated) 1,000 mls @ 50 mls/hr IV ASDIRECTED [facility] Last Admin: 12/16/18 12:24 Dose: 50 mls/hr Iopamidol (Isovue-370 (76%)) 100 ml IV ONETIME ONE Stop: 12/14/18 09:56 Last Admin: 12/14/18 10:06 Dose: 70 ml Metoprolol Tartrate (Lopressor) 2.5 mg IVPUSH Q6H [facility] Last Admin: 12/15/18 09:38 Dose: 2.5 mg Metoprolol Tartrate (Lopressor) 2.5 mg IVPUSH ONETIME [facility] Stop: 12/15/18 13:14 Last Admin: 12/15/18 13:47 Dose: 2.5 mg Metoprolol Tartrate (Lopressor) 5 mg IVPUSH Q6H [facility] Metoprolol Tartrate (Lopressor) 2.5 mg IVPUSH ONETIME ONE Stop: 12/15/18 15:01 Last Admin: 12/15/18 15:20 Dose: 2.5 mg Metoprolol Tartrate (Lopressor) 5 mg IVPUSH Q6H [facility] Last Admin: 12/16/18 09:11 Dose: 5 mg Flurbiprofen Sodium [Flurbiprofen Sodium ] 2.5 Ml) 2.5 ml OP ASDIRECTED [facility] Non-Formulary Medication (Nystatin) 1 applic TOP BID [facility] Last Admin: 12/15/18 18:44 Dose: Not Given Ondansetron HCl (Zofran) 4 mg IVPUSH ONETIME ONE Stop: 12/14/18 08:37 Last Admin: 12/14/18 08:51 Dose: 4 mg Pantoprazole Sodium (Protonix Iv) 40 mg IVPUSH DAILY [facility] Last Admin: 12/16/18 09:11 Dose: 40 mg Pantoprazole Sodium (Protonix) 40 mg PO DAILY@0700 [facility] Budesonide/Formoterol Fumarate (Symbicort) 0 each INH BID [facility] Last Admin: 12/15/18 09:17 Dose: Not Given Cyclosporine Eye (Drops Ptom) 1 each EYEBOTH ASDIRECTED PRN PRN Reason: Dry Eyes Sodium Chloride (Saline Flush) 10 ml FLUSH ONETIME PRN PRN Reason: IV FLUSH Last Admin: 12/14/18 10:07 Dose: 10 ml - Exam General: Alert, Oriented, Cooperative, No Acute Distress HEENT: Pupils Equal, Pupils Reactive, EOMI, Mucous Membr. Moist/[place] Neck: Supple Lungs: Normal Respiratory Effort, Decreased Breath Sounds, Crackles (at the bases) Cardiovascular: Regular Rate, Regular Rhythm GI/Abdominal Exam: Normal Bowel Sounds, Soft, Non-Tender, No Organomegaly, No Distention, No Abnormal Bruit, Other (midline abdominal scar) (Female) Exam: Deferred Back Exam: Normal Inspection, Decreased Range of Motion Extremities: Normal Inspection, Normal Range of Motion, Non-Tender, No Pedal Edema, Normal Capillary Refill Peripheral Pulses: 2+: Dorsalis Pedis (L), Dorsalis Pedis (R) Skin: Warm, Dry, Intact Neurological: No New Focal Deficit Psy/Mental Status: Alert, Normal Affect, Normal Mood - Problem List Review Problem List Initiated/Reviewed/Updated: Yes - My Orders Last 24 Hours: My Active Orders 12/17/18 14:00 Furosemide [Lasix] 10 mg IVPUSH BIDDIURETIC 12/17/18 21:00 Carvedilol [Coreg] 12.5 mg PO BID 12/17/18 Dinner Soft Diet [DIET] 12/18/18 09:00 Enoxaparin [Lovenox] 30 mg SUBCUT DAILY hydroCHLOROthiazide 12.5 mg PO DAILY 12/18/18 18:00 hydroCHLOROthiazide 12.5 mg PO BIDDIURETIC 12/19/18 05:11 BMP [BASIC METABOLIC PANEL,BMP] [CHEM] AM CBC WITH AUTO DIFF [HEME] AM MG [MAGNESIUM] [CHEM] AM - Plan Plan:: Assessment/Plan: Acute: Volume Overload * Unknown EF; She is not from around here * 2/2 Aggressive fluid hydration * Continue to monitor Is/Os and daily weights * Per night nurse (Anni) she weighs 118lbs on admission; today 125lbs--> 2lbs weight loss since yesterday * ProBNP level 5313-->[id number]; continue diuretics Hypertension, Stable * Likely 2/2 fluid retention/Volume overload * Continue with diuresis Pseudo-Anemia, Improving * Patient had a drop in her hemoglobin; baseline is Hgb is 12 grams on presentation * 2/2 hemo-dilutional from aggressive hydration * Heme-occult stool test is negative * Hgb is now 7.9 (7.6 yesterday); E-lytes Abnormality * Hypokalemia and Hypomagnesemia * 2/2 Diuresis and Inadequate intake * Just started regular solid meal yesterday * Replete and monitor 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 This is her second episode in 2 months * Discontinue NGT-high risk for development of rhinitis plus she had 2 bowel movements * She is tolerating regular meal (x2) w/o any issues * Has had at least 3-4 bowel movements now Chronic medical conditions: Asthma, which arthritis, Sjogren's syndrome, arthritis, pacemaker Plan: She continues to improved clinically Continue to ambulate as tolerated Routine AM Labs GI/VTE prophylaxis: H2B/Lovenox SubQ SW/CM for d/c planning Additional orders as above Code Status: 1 LOS > 96hrs due volume overload; may benefit with one more day for diuresis w/ possible discharge in AM.
[2018-12-18] MEDS: Albuterol/Ipratropium 3.0-0.5 MG/3 ML Neb Soln NEB PRN ×2 (08:46→20:41)
[2018-12-18] MEDS: Formoterol/Mometasone 200-5 MCG 8.8 GM Inhaler IH SCH ×2 (08:46→20:43)
[2018-12-18] MEDS ORDERED: Hydrochlorothiazide 12.5 MG Cap PO SCH (09:00)
[2018-12-18] MEDS: Carvedilol 12.5 MG Tab PO SCH ×2 (09:38→20:23)
[2018-12-18] MEDS: Enoxaparin 40 MG/0.4 ML Syringe SUBCUT SCH (09:39)
[2018-12-18] MEDS: Famotidine 20 MG/2 ML SDV IVPUSH SCH ×2 (09:39→20:24)
[2018-12-18] MEDS ORDERED: Magnesium Sulfate/Water 4 GM in Premix Bag 1 BAG IV ONE (11:00)
[2018-12-18] MEDS: Acetaminophen 325 MG Tab PO PRN ×2 (11:10→20:22)
[2018-12-18] MEDS ORDERED: Potassium Chloride 10% 20 MEQ/15 ML Soln 15 ML UD Cup PO ONE (12:15)
[2018-12-18] MEDS: Hydrochlorothiazide 12.5 MG Cap PO SCH (17:11)
[2018-12-19] MEDS: Hydrochlorothiazide 12.5 MG Cap PO SCH (06:32)
[2018-12-19] MEDS: Furosemide 20 MG/2 ML VIAL IVPUSH SCH (06:33)
--- NOTE | 2018-12-19 08:37 | PCM.DCSUM1 ---
Discharge Summary - Hospital Course HPI Initial Comments: This 73-year-old female with history of bowel obstruction 2 months ago presents to the ER this morning after developing abdominal pain last night. She states that her stomach hurt last night with cramping and pain. She then had 3 bowel movements which did seem to help her pain. At 3:00 in the morning she started vomiting green bile and the pain worsened again. At 6:30 she did have another bowel movement and urinated. Pain did not improve and she continued to vomit and by 8:00 she came to the hospital. She states that her stomach now feels full. She denies any hematemesis, coffee-ground emesis, melena, or blood in her stool. Patient had a similar episode 2 months ago and she was diagnosed with bowel obstruction and hospitalized for 3 or 4 days. She does state that she likely had a similar, smaller episode 2 weeks earlier. Patient states that in 1998 she had a hysterectomy with oophorectomy and appendectomy. At that time presumed diagnosis was possible ovarian cancer and she underwent 3 months of chemotherapy. 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 Patient underwent diagnostic surgery, chemotherapy, and radiation. In 2014 she underwent surgery again for complications to her pseudomyxoma peritonei. She has not had any bowel resection other than the appendectomy. In the emergency room patient had an NG tube placed. She states she did vomit and they did get some residual. She was given 1 L normal saline and admitted. CT of the abdomen was done in the emergency room. Impression: 1. Mid to distal small bowel obstruction with transition point being within the pelvis. This occurs in the area of surgical clips and presumably represents obstruction from adhesion. 2. Small amount of ascites. 3. Emphysematous bullae within both lung bases. Other incidental findings. Diagnosis: Stroke: No Modified Yvonne Scale: No Symptoms at All Modified Yvonne Scale Score: 0 - Discharge Data Discharge Date: 12/19/18 (Admit date: 12/14/18) Discharge Disposition: Home, Self-Care 01 Condition: Good - Discharge Diagnosis/Problem(s) (1) Pseudomyxoma peritonei SNOMED Code(s): 961268776 ICD Code: C78.6 - SECONDARY MALIGNANT NEOPLASM OF RETROPERITON AND PERITONEUM Status: Chronic Priority: High Current Visit: Yes (2) Volume overload SNOMED Code(s): 60041560 ICD Code: E87.70 - FLUID OVERLOAD, UNSPECIFIED Status: Resolved Priority : High Current Visit: Yes Qualifiers: Hypervolemia type: other Qualified Code(s): E87.79 - Other fluid overload (3) Hypokalemia SNOMED Code(s): 58100653 ICD Code: E87.6 - HYPOKALEMIA Status: Resolved Current Visit: Yes (4) Hypomagnesemia syndrome SNOMED Code(s): 548244729 ICD Code: E83.42 - HYPOMAGNESEMIA Status: Resolved Priority: High Current Visit: Yes (5) Rheumatoid arthritis SNOMED Code(s): 89558338 ICD Code: M06.9 - RHEUMATOID ARTHRITIS, UNSPECIFIED Status: Chronic Priority: Medium Current Visit: No Qualifiers: Rheumatoid arthritis location: unspecified site Rheumatoid factor presence : unspecified presence Qualified Code(s): M06.9 - Rheumatoid arthritis, unspecified (6) Sjogrens syndrome SNOMED Code(s): 26065467 ICD Code: M35.00 - SICCA SYNDROME, UNSPECIFIED Status: Chronic Priority: Low Current Visit: No Qualifiers: Sjogren's organ involvement: unspecified organ involvement Qualified Code(s ): M35.00 - Sicca syndrome, unspecified (7) HTN (hypertension) SNOMED Code(s): 37011696 ICD Code: I10 - ESSENTIAL (PRIMARY) HYPERTENSION Status: Chronic Priority : Medium Current Visit: Yes Qualifiers: Hypertension type: essential hypertension Qualified Code(s): I10 - Essential (primary) hypertension - Patient Summary/Data Consults: Consultations 12/15/18 11:20 PT Evaluation and Treatment [CONS] Routine Labs Pending at D/C: None Recommended Follow-up Testing/Procedures: Follow-up with PCP within 1 week of discharge, sooner if needed. Hospital Course: Assessment/Plan: Acute: Volume Overload * Unknown EF; She is not from around here * 2/2 Aggressive fluid hydration * Continue to monitor Is/Os and daily weights * Per night nurse (Anni) she weighs 118lbs on admission; today 125lbs--> 4lbs weight loss since starting diuretics * ProBNP level 5313-->3971-->1485 Hypertension, Stable * Likely 2/2 fluid retention/Volume overload * Continue with diuresis Pseudo-Anemia, Improving * Patient had a drop in her hemoglobin; baseline is Hgb is 12 grams on presentation * 2/2 hemo-dilutional from aggressive hydration * Heme-occult stool test is negative * Hgb is now 7.9 (7.6 yesterday); 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 Resolved: S/p Hypovolemia/Dehydration * 2/2 GI loss and NPO status S/P Small Bowel Obstruction, Resolved * Risk factor: Previous abdominal surgery * Small 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 This is her second episode in 2 months * Discontinue NGT-high risk for development of rhinitis plus she had 2 bowel movements * She is tolerating regular meal (x2) w/o any issues * Has had at least 3-4 bowel movements now S/P E-lytes Abnormality * Hypokalemia and Hypomagnesemia * 2/2 Diuresis and Inadequate intake * Just started regular solid meal yesterday * Replete and monitor Chronic medical conditions: Asthma, which arthritis, Sjogren's syndrome, arthritis, pacemaker Plan: She continues to improved clinically Continue to ambulate as tolerated Routine AM Labs GI/VTE prophylaxis: H2B/Lovenox SubQ SW/CM for d/c planning Additional orders as above Code Status: 1 LOS > 96hrs due volume overload; may benefit with one more day for diuresis w/ possible discharge in AM. Christina presented to our ED and was admitted with a small bowel obstruction. This is secondary to her Pseudomyxoma Peritonei. She has had issues with this in the past and this is nothing new for her. NG tube was placed and she was placed on nothing by mouth status, eventually transitioning back to the regular meals. Prior to discharge she did report a soft bowel movement which was improved from the diarrhea she was having before. On admission she was noted to be dehydrated and was aggressively rehydrated. This led to a pseudo-anemia as she was hemodiluted. Stool test was obtained and was negative. Hemoglobin did improve with diuresis and discontinuation of IV fluids. Electrolytes were replaced. She was also noted to be high burn intensive however it is thought this was secondary to her aggressive fluid rehydration. She was diuresed with improvement of symptoms and noted weight loss. No new medications were started. She was instructed to follow-up with her primary care provider within one week of discharge and will likely need a follow-up with general surgery as well. Was recommended by Dr. Tirado that she started on Benefiber at discharge. Recommend she receive a CBC, BMP, and magnesium rechecked at her one -week follow-up appointment. She does not live in [place] and primarily resides in the [place] area. She was instructed to contact her PCP, I'll walk in clinic, or return to the ED should symptoms return or worsen. She'll be discharged home today. - Patient Instructions Diet: Heart Healthy Diet, Usual Diet as Tolerated, Low Sodium Diet, Other: avoid fatty/greasy and dairy products for a few days then resume usual diet Activity: As Tolerated Driving: May Drive Today Showering/Bathing: May Shower Notify Provider of: Fever, Increased Pain, Swelling and Redness, Nausea and/or Vomiting Other/Special Instructions: - Please all home medications as directed. - Continue routine home activities as tolerated. - Make sure you continue to ambulate as tolerated. - Recommend benefiber to prevent constipation. - Call your family doctor for any questions or concerns after discharge. - Follow up with PCP in 1 week w/ repeat labs (CBC, BMP and Mg). - Come back or seek immediate care should your symptom persists or gets worse - Discharge Plan *PRESCRIPTION DRUG MONITORING PROGRAM REVIEWED*: Not Applicable *COPY OF PRESCRIPTION DRUG MONITORING REPORT IN PATIENT AKOSUA: Not Applicable Home Medications: Home Meds Acetaminophen [Tylenol Extra Strength] 1,000 mg PO QID 08/11/17 [History] Albuterol Sulfate [Proair Respiclick] 2 puff INH Q4H PRN 08/11/17 [History] Ascorbate Calcium [Vitamin C] 500 mg PO DAILY 08/11/17 [History] Budesonide/Formoterol Fumarate [Symbicort 160-4.5 Mcg Inhaler] 2 puff INH BID [History] Ca/D3/Mag Ox/Zinc/A[employer]dn[employer] Technician/Uri/Bor [Calcium 600-D3 Plus Caplet] 600 - 1,500 mg PO DAILY 08/11/17 [History] Carboxymethylcellulose Sodium [Refresh Tears 0.5%] 1 drop EYEBOTH ASDIRECTED PRN 08/11/17 [History] Carvedilol [Coreg] 12.5 mg PO BID 08/11/17 [History] Cephalexin [Keflex] 500 mg PO BID 08/11/17 [History] Cholecalciferol (Vitamin D3) [Vitamin D3] 2,000 unit PO ASDIRECTED 08/11/17 [ History] Docusate Sodium [Colace] 300 mg PO BEDTIME PRN 08/11/17 [History] Hydroxychloroquine [Plaquenil] 200 mg PO BID 08/11/17 [History] Ibuprofen [Advil] 200 mg PO BID 08/11/17 [History] Ipratropium/Albuterol Sulfate [Iprat-Albut 0.5-3(2.5) mg/3 ml] 3 ml IH BID 08/11 [History] Lisinopril 20 mg PO DAILY 08/11/17 [History] Multivitamin [Multivitamins] 1 each PO DAILY 08/11/17 [History] OLANZapine [ZyPREXA] 2.5 mg PO DAILY 08/11/17 [History] Ofloxacin [Floxin 0.3% Otic Soln] 1 drop EYEBOTH ASDIRECTED PRN 08/11/17 [ History] Omeprazole 40 mg PO DAILY 08/11/17 [History] traMADol [Ultram] 50 mg PO Q6H PRN 08/11/17 [History] Furosemide [Lasix] 20 mg PO DAILY PRN 12/14/18 [History] cycloSPORINE [Restasis] 1 each OP ASDIRECTED PRN 12/14/18 [History] Oxygen Therapy Mode: Room Air Patient Handouts: Small Bowel Obstruction, [id number], Hypomagnesemia, Hypokalemia, Hypertension, [id number] Referrals: Regino Lanza [Other] (Please follow up with Primary Doctor when you arrive back home, YOU NEED TO MAKE YOUR OWN FOLLOW UP PER YOUR REQUEST. Thank you!) - Discharge Summary/Plan Comment DC Time >30 min.: Yes (40 minutes) - General Info Date of Service: 12/19/18 Admission Dx/Problem (Free Text: Admission Diagnosis/Problem Admission Diagnosis/Problem Small bowel obstruction Subjective Update: In to see Christina. She is sitting up in the chair eating lunch. She has no complaints. She does report she had a small bowel movement which was soft. Dr. Tirado placed for discharge medications and discussed discharge plan with her. No nursing or patient concerns. Functional Status: Reports: Pain Controlled, Tolerating Diet, Ambulating, Urinating. Denies: New Symptoms - Review of Systems General: Reports: No Symptoms. Denies: Fever, Weakness, Fatigue, Malaise, Chills HEENT: Reports: No Symptoms. Denies: Headaches, Sore Throat Pulmonary: Reports: No Symptoms. Denies: Shortness of Breath, Pleuritic Chest Pain, Cough, Sputum, Wheezing Cardiovascular: Reports: No Symptoms. Denies: Chest Pain, Palpitations, Dyspnea on Exertion, Edema, Lightheadedness Gastrointestinal: Reports: No Symptoms. Denies: Abdominal Pain, Constipation, Diarrhea, Nausea, Vomiting Genitourinary: Reports: No Symptoms. Denies: Pain Musculoskeletal: Reports: No Symptoms Skin: Reports: No Symptoms Neurological: Reports: No Symptoms. Denies: Confusion, Pre-Existing Deficit, Trouble Speaking, Difficulty Walking, Gait Disturbance Psychiatric: Reports: No Symptoms - Patient Data Vitals - Most Recent: Last Vital Signs Temp 97.7 F 12/19/18 07:35 Pulse 78 12/19/18 07:35 Resp 14 12/19/18 07:35 BP 130/72 12/19/18 07:35 Pulse Ox 92 L 12/19/18 07:35 Weight - Most Recent: 123 lb 8 oz I&O - Last 24 hours: Intake & Output 12/18/18 12/19/18 12/19/18 22:59 06:59 14:59 Intake Total 1170 1070 Output Total 1450 1100 Balance -280 -30 Lab Results - Last 24 hrs: Laboratory Results - last 24 hr 12/19/18 12/19/18 12/19/18 Range/Units 06:35 06:35 06:35 WBC 2.83 L (3.98-10.04) K/mm3 RBC 3.06 L (3.98-5.22) M/mm3 Hgb 8.7 L (11.2-15.7) gm/L Hct 28.7 L (34.1-44.9) % MCV 93.8 (79.4-94.8) fl MCH 28.4 (25.6-32.2) pg MCHC 30.3 L (32.2-35.5) g/dl RDW Std Deviation 44.2 (36.4-46.3) fL Plt Count 185 (182-369) K/mm3 MPV 9.5 (9.4-12.3) fl Neut % (Auto) 55.8 (34.0-71.1) % Lymph % (Auto) 29.0 (19.3-51.7) % Emery % (Auto) 15.2 H (4.7-12.5) % Eos % (Auto) 0 L (0.7-5.8) Baso % (Auto) 0.0 L (0.1-1.2) % Neut # (Auto) 1.58 (1.56-6.13) K/mm3 Lymph # (Auto) 0.82 L (1.18-3.74) K/mm3 Emery # (Auto) 0.43 H (0.24-0.36) K/mm3 Eos # (Auto) 0.00 L (0.04-0.36) K/mm3 Baso # (Auto) 0.00 L (0.01-0.08) K/mm3 Sodium 134 L (136-145) mEq/L Potassium 4.0 (3.5-5.1) mEq/L Chloride 100 (98-107) mEq/L Carbon Dioxide 25 (21-32) mEq/L Anion Gap 13.0 (5-15) BUN 10 (7-18) mg/dL Creatinine 0.8 (0.55-1.02) mg/dL Est Cr Clr Drug Dosing 56.10 mL/min Estimated GFR (MDRD) > 60 (>60) mL/min BUN/Creatinine Ratio 12.5 L (14-18) Glucose 96 (83-115) mg/dL Calcium 8.7 (8.5-10.1) mg/dL Magnesium 1.9 (1.8-2.4) mg/dl NT-Pro-B Natriuret Pep 1485 H (0-125) pg/mL Med Orders - Current: Current Medications Acetaminophen (Tylenol) 650 mg PO Q4H PRN PRN Reason: Pain (Mild 1-3)/fever Last Admin: 12/18/18 20:22 Dose: 650 mg Acetaminophen/Butalbital/Caffeine (Fioricet 325-50-40 Mg) 1 tab PO Q6H PRN PRN Reason: Headache/Pain Albuterol (Proventil Hfa) 0 gm INH Q4H PRN PRN Reason: Wheezing Albuterol/Ipratropium (Duoneb 3.0-0.5 Mg/3 Ml) 3 ml NEB Q4H PRN PRN Reason: Shortness Of Breath/wheezing Last Admin: 12/18/18 20:41 Dose: 3 ml Artificial Tears (Refresh Liquigel 1%) 0 ml EYEBOTH ASDIRECTED PRN PRN Reason: Dry Eyes Carvedilol (Coreg) 12.5 mg PO BID [facility] Last Admin: 12/18/18 20:23 Dose: 12.5 mg Enoxaparin Sodium (Lovenox) 40 mg SUBCUT DAILY [facility] Last Admin: 12/18/18 09:39 Dose: 40 mg Famotidine (Pepcid) 20 mg IVPUSH BID [facility] Last Admin: 12/18/18 20:24 Dose: 20 mg Hydralazine HCl (Apresoline) 20 mg IVPUSH Q4H PRN PRN Reason: Hypertension Hydrochlorothiazide (Hydrochlorothiazide) 12.5 mg PO BIDDIURETIC [facility] Last Admin: 12/19/18 06:32 Dose: 12.5 mg Magnesium Sulfate (Pharmacy To Dose - Magnesium Replacement) 0 dose .XX ASDIRECTED PRN PRN Reason: RX TO WATCH MAG Metoprolol Tartrate (Lopressor) 5 mg IVPUSH Q4H PRN PRN Reason: Tachycardia Last Admin: 12/17/18 14:10 Dose: 5 mg Mometasone Furoate/Formoterol Fumar (Dulera 200-5 Mcg) 0 puff IH BID [facility] Last Admin: 12/18/18 20:43 Dose: 2 puff Ondansetron HCl (Zofran) 4 mg IV Q4H PRN PRN Reason: Nausea/Vomiting Ondansetron HCl (Zofran Odt) 4 mg PO Q6H PRN PRN Reason: nausea, able to take PO Potassium Chloride (Pharmacy To Dose - Potassium Replacement) 0 dose .XX ASDIRECTED PRN PRN Reason: RX TO WATCH K Sodium Chloride (Saline Flush) 10 ml FLUSH ASDIRECTED PRN PRN Reason: Keep Vein Open Last Admin: 12/14/18 08:45 Dose: 10 ml Discontinued Medications Albuterol/Ipratropium (Duoneb 3.0-0.5 Mg/3 Ml) 3 ml NEB Q6HRRT PRN PRN Reason: Dyspnea Last Admin: 12/16/18 14:46 Dose: 3 ml Albuterol/Ipratropium (Duoneb 3.0-0.5 Mg/3 Ml) 3 ml NEB Q6HRRT PRN PRN Reason: Shortness of Breath Carvedilol (Coreg) 6.25 mg PO BID [facility] Last Admin: 12/16/18 12:25 Dose: 6.25 mg Diatrizoate Meglum/Diatrizoate Sod (Gastrografin 37%) 120 ml PO ONETIME ONE Stop: 12/14/18 09:56 Last Admin: 12/14/18 10:07 Dose: 45 ml Enoxaparin Sodium (Lovenox) 40 mg SUBCUT DAILY [facility] Last Admin: 12/17/18 10:31 Dose: 40 mg Furosemide (Lasix) 10 mg IVPUSH NOW ONE Stop: 12/17/18 08:38 Last Admin: 12/17/18 10:31 Dose: 10 mg Furosemide (Lasix) 10 mg IVPUSH BIDDIURETIC BEBA Stop: 12/19/18 06:01 Last Admin: 12/19/18 06:33 Dose: 10 mg Hydrochlorothiazide (Hydrochlorothiazide) 25 mg PO ONETIME ONE Stop: 12/17/18 09:01 Last Admin: 12/17/18 10:31 Dose: 25 mg Hydrochlorothiazide (Hydrochlorothiazide) 12.5 mg PO DAILY [facility] Last Admin: 12/18/18 10:01 Dose: 12.5 mg Sodium Chloride (Normal Saline) 1,000 mls @ 1,000 mls/hr IV .BOLUS STA Stop: 12/14/18 09:35 Last Admin: 12/14/18 08:53 Dose: 1,000 mls/hr Sodium Chloride (Normal Saline) 100 mls @ 75 mls/hr IV ASDIRECTED BEBA Last Admin: 12/14/18 10:07 Dose: 75 mls/hr Dextrose/Sodium Chloride (Dextrose 5%-Normal Saline) 1,000 mls @ 150 mls/hr IV ASDIRECTED BEBA Sodium Chloride (Normal Saline) 500 mls @ 999 mls/hr IV .BOLUS BEBA Last Admin: 12/14/18 15:32 Dose: 999 mls/hr Sodium Chloride (Normal Saline) 1,000 mls @ 150 mls/hr IV ASDIRECTED BEBA Last Admin: 12/14/18 16:28 Dose: 150 mls/hr Dextrose/Sodium Chloride (Dextrose 5%-Normal Saline) 1,000 mls @ 150 mls/hr IV ASDIRECTED [facility] Last Admin: 12/15/18 06:01 Dose: 150 mls/hr Magnesium Sulfate 4 gm/ Premix 100 mls @ 25 mls/hr IV ONETIME ONE Stop: 12/15/18 07:56 Last Admin: 12/15/18 09:37 Dose: 25 mls/hr Dextrose/Sodium Chloride (Dextrose 5%-Normal Saline) 1,000 mls @ 100 mls/hr IV ASDIRECTED BEBA Dextrose/Sodium Chloride (Dextrose 5%-Normal Saline) 1,000 mls @ 100 mls/hr IV ASDIRECTED BEBA Dextrose/Sodium Chloride (Dextrose 5%-Normal Saline) 1,000 mls @ 75 mls/hr IV ASDIRECTED BEBA Last Admin: 12/16/18 03:51 Dose: 75 mls/hr Lactated Ringer's (Ringers, Lactated) 1,000 mls @ 50 mls/hr IV ASDIRECTED [facility] Last Admin: 12/16/18 12:24 Dose: 50 mls/hr Magnesium Sulfate 4 gm/ Premix 50 mls @ 12.5 mls/hr IV ONETIME ONE Stop: 12/18/18 14:59 Last Admin: 12/18/18 11:11 Dose: 12.5 mls/hr Iopamidol (Isovue-370 (76%)) 100 ml IV ONETIME ONE Stop: 12/14/18 09:56 Last Admin: 12/14/18 10:06 Dose: 70 ml Metoclopramide HCl (Reglan) 5 mg IVPUSH Q6H [facility] Last Admin: 12/18/18 11:09 Dose: 5 mg Metoclopramide HCl (Reglan) 5 mg IVPUSH TID@0700,1400,2100 BEBA Stop: 12/18/18 21:01 Last Admin: 12/18/18 20:26 Dose: 5 mg Metoprolol Tartrate (Lopressor) 2.5 mg IVPUSH Q6H [facility] Last Admin: 12/15/18 09:38 Dose: 2.5 mg Metoprolol Tartrate (Lopressor) 2.5 mg IVPUSH ONETIME STA Stop: 12/15/18 13:14 Last Admin: 12/15/18 13:47 Dose: 2.5 mg Metoprolol Tartrate (Lopressor) 5 mg IVPUSH Q6H [facility] Metoprolol Tartrate (Lopressor) 2.5 mg IVPUSH ONETIME ONE Stop: 12/15/18 15:01 Last Admin: 12/15/18 15:20 Dose: 2.5 mg Metoprolol Tartrate (Lopressor) 5 mg IVPUSH Q6H [facility] Last Admin: 12/16/18 09:11 Dose: 5 mg Flurbiprofen Sodium [Flurbiprofen Sodium ] 2.5 Ml) 2.5 ml OP ASDIRECTED [facility] Non-Formulary Medication (Nystatin) 1 applic TOP BID [facility] Last Admin: 12/15/18 18:44 Dose: Not Given Ondansetron HCl (Zofran) 4 mg IVPUSH ONETIME ONE Stop: 12/14/18 08:37 Last Admin: 12/14/18 08:51 Dose: 4 mg Pantoprazole Sodium (Protonix Iv) 40 mg IVPUSH DAILY [facility] Last Admin: 12/16/18 09:11 Dose: 40 mg Pantoprazole Sodium (Protonix) 40 mg PO DAILY@0700 [facility] Budesonide/Formoterol Fumarate (Symbicort) 0 each INH BID [facility] Last Admin: 12/15/18 09:17 Dose: Not Given Cyclosporine Eye (Drops Ptom) 1 each EYEBOTH ASDIRECTED PRN PRN Reason: Dry Eyes Potassium Chloride (Potassium Chloride Solution) 20 meq PO ONETIME ONE Stop: 12/18/18 12:16 Last Admin: 12/18/18 13:27 Dose: 20 meq Sodium Chloride (Saline Flush) 10 ml FLUSH ONETIME PRN PRN Reason: IV FLUSH Last Admin: 12/14/18 10:07 Dose: 10 ml - Exam Quality Assessment: Reports: DVT Prophylaxis General: Reports: Alert, Oriented, Cooperative, No Acute Distress HEENT: Reports: Pupils Equal, Pupils Reactive, EOMI, Mucous Membr. Moist/[place]: Reports: Supple, Trachea Midline, No JVD Lungs: Reports: Normal Respiratory Effort, Decreased Breath Sounds. Denies: Rhonchi, Wheezing Cardiovascular: Reports: Regular Rate, Regular Rhythm GI/Abdominal Exam: Normal Bowel Sounds, Soft, Non-Tender, No Organomegaly, No Distention (Female) Exam: Deferred Rectal (Female) Exam: Deferred Back Exam: Reports: Normal Inspection, Full Range of Motion Extremities: Normal Inspection, Normal Range of Motion, Non-Tender, No Pedal Edema, Normal Capillary Refill Skin: Reports: Warm, Dry, Intact Neurological: Reports: No New Focal Deficit Psy/Mental Status: Reports: Alert, Normal Affect, Normal Mood
[2018-12-19] MEDS: Albuterol/Ipratropium 3.0-0.5 MG/3 ML Neb Soln NEB PRN (08:42)
[2018-12-19] MEDS: Formoterol/Mometasone 200-5 MCG 8.8 GM Inhaler IH SCH (08:54)
[2018-12-19] MEDS: Carvedilol 12.5 MG Tab PO SCH (08:57)
[2018-12-19] MEDS: Enoxaparin 40 MG/0.4 ML Syringe SUBCUT SCH (08:58)
[2018-12-19] MEDS: Famotidine 20 MG/2 ML SDV IVPUSH SCH (08:58)
[2018-12-19] MEDS: Acetaminophen 325 MG Tab PO PRN (10:52)
== END 2018-12-19 14:15 | disposition home or self-care (01) | DRG 376 ==
LOC: JD.ED 08:01 → JD.MS 12:14
PROVIDERS: ADMIT Family Medicine; ATTEND Family Medicine
PROC: 0D9670Z Drainage of Stomach with Drainage Device, Via Natural or Artificial Opening (ICD-10-PCS; principal; 2018-12-14)
DX: K56.609 Unspecified intestinal obstruction, unspecified as to partial versus complete obstruction (principal); C78.6 Secondary malignant neoplasm of retroperitoneum and peritoneum; I11.0 Hypertensive heart disease with heart failure; I50.9 Heart failure, unspecified; J45.909 Unspecified asthma, uncomplicated; M06.9 Rheumatoid arthritis, unspecified; M35.00 Sjogren syndrome, unspecified; E86.1 Hypovolemia; E86.0 Dehydration; E87.6 Hypokalemia; E83.42 Hypomagnesemia; D64.89 Other specified anemias; H54.7 Unspecified visual loss; Z85.3 Personal history of malignant neoplasm of breast; Z85.43 Personal history of malignant neoplasm of ovary; Z95.0 Presence of cardiac pacemaker; Z90.710 Acquired absence of both cervix and uterus; Z88.5 Allergy status to narcotic agent; Z88.2 Allergy status to sulfonamides; Z88.8 Allergy status to other drugs, medicaments and biological substances; Z91.048 Other nonmedicinal substance allergy status; R11.2 Nausea with vomiting, unspecified; R10.9 Unspecified abdominal pain; R18.8 Other ascites; Z79.899 Other long term (current) drug therapy; Z87.01 Personal history of pneumonia (recurrent); Z85.028 Personal history of other malignant neoplasm of stomach; Z87.440 Personal history of urinary (tract) infections; Z79.52 Long term (current) use of systemic steroids; Z90.10 Acquired absence of unspecified breast and nipple; Z87.891 Personal history of nicotine dependence; Z92.21 Personal history of antineoplastic chemotherapy; Z92.3 Personal history of irradiation
CPT/HCPCS: 36415; 74177; 80053; 83690; 85025; 96361; 96374; 99285; J2405; J7030; J7040; Q9963; Q9967; 51702; 74019; 74019-26; 80048; 81001; 82272; 83540; 83605; 83735; 83880; 84100; 84466; 85014; 85018; 93005; 94640; 94760; 94761; 97116-GP; 97162-GP; 99284; A9270-GY; C9113; J1650; J2765; J3475; J3490; J7042; J7120; J7620-GY